=== PATIENT | male | born 1955 | race Hispanic/Latino ===

== ENCOUNTER 2018-02-02 01:27 | Inpatient (IN) | payer BC, OTHER ==
[~2018-02-02] VITALS: Ht 172.7 cm; Wt 76.7 kg
[~2018-02-02 01:27] MED LIST: GLUCOVANCE 2.51 EAC1 PO; GLYBURIDE5 MG PO; HYDROCHLOROTHIA25 MG PO; JANUMET XR 50-1 EAC1 PO; LISINOPRIL40 MG PO; Z.0.JANUVIA100 MG PO; Z.0.LISINOPRIL10 MG PO; Z.0.NORVASC10 MG PO; Z.0.TESSALON PERLE10 PO
[2018-02-02] MEDS ORDERED: ONDANSETRON HCL INJ 2 MG/ML VIAL IV STA (01:33)
[2018-02-02] MEDS ORDERED: MORPHINE SULFATE 2 MG/ML SYR IV STA (01:33)
[2018-02-02] MEDS ORDERED: SODIUM CHLORIDE 0.9% 1000ML 1,000 ML IV ONE (01:45)
[2018-02-02] MEDS ORDERED: DIATRIZOATE MEGL/DIATRIZOA SOD 30 ML BTL PO ONE (01:52)
[2018-02-02 01:56] LABS: BASOPHILS % 0.3 % (0.0-1.0); EOSINOPHILS # (AUTO) 0.4 (0.0-0.4); EOSINOPHILS % 3.2 % (0.0-6.0); HEMATOCRIT 41.2 % (38.2-49.6); LYMPHOCYTES # (AUTO) 3.2 (1.0-3.2); LYMPHOCYTES % 28.1 % (18.0-39.1); MEAN CORPUSCULAR HEMOGLOBIN 32.8 pg (28-32); MEAN CORPUSCULAR HGB CONC 36.4 g/dL (31-35); MONOCYTES # (AUTO) 0.6 (0.2-0.8); MONOCYTES % 5.2 % (4.4-11.3); NEUTROPHILS # (AUTO) 7.3 (2.1-6.9); NEUTROPHILS % 62.9 % (38.7-80.0); PLATELET COUNT 200 x10e3/uL (140-360); RED BLOOD COUNT 4.58 x10e6/uL (4.3-5.7); RED CELL DISTRIBUTION WIDTH 11.8 % (11.7-14.4)
[2018-02-02 02:15] LABS: ALANINE AMINOTRANSFERASE 12 IU/L (0-55); ALBUMIN 4.3 g/dL (3.5-5.0); ALBUMIN/GLOBULIN RATIO 1.1 (0.8-2.0); ALKALINE PHOSPHATASE 128 IU/L (40-150); AMYLASE 53 U/L (25-125); ANION GAP 16.1 mmol/L (8-16); BLOOD UREA NITROGEN 12 mg/dL (7-26); BUN/CREATININE RATIO 9 (6-25); CALCIUM 9.5 mg/dL (8.4-10.2); CARBON DIOXIDE 25 mmol/L (22-29); CHLORIDE 102 mmol/L (98-107); CREATINE KINASE 87 IU/L (30-200); CREATININE, SERUM 1.29 mg/dL (0.72-1.25); EST GLOMERULAR FILTRATION RATE 57 ML/MIN (60-); GLUCOSE 304 mg/dL (74-118); LIPASE 27 U/L (8-78); POTASSIUM 3.1 mmol/L (3.5-5.1); SODIUM 140 mmol/L (136-145)
[2018-02-02 02:34] LABS: BILIRUBIN,URINE NEGATIVE (NEGATIVE); CLARITY,URINE CLEAR (CLEAR); COLOR,URINE YELLOW (YELLOW); KETONES,URINE NEGATIVE (NEGATIVE); LEUKOCYTE ESTERASE ,URINE NEGATIVE (NEGATIVE); NITRITE,URINE NEGATIVE (NEGATIVE); PROTEIN,URINE DIPSTICK NEGATIVE (NEGATIVE); URINE UROBILINOGEN 0.2 mg/dL (0.2 - 1)
[2018-02-02] MEDS ORDERED: HYDRALAZINE HCL 20 MG/ML VIAL IV STA (02:34)
[2018-02-02 03:09] LABS: MUCUS,URINE FEW (RARE); RBC,URINE 0-5 /HPF (0-5); WBC,URINE (MAN) 0-5 /HPF (0-5)
[2018-02-02] MEDS ORDERED: IOPAMIDOL 370 MG/ML 200 ML INFUS..BTL INJ ONE (03:19)
[2018-02-02] MEDS ORDERED: SODIUM CHLORIDE 0.9% 50ML 50 ML ONE (03:19)
--- NOTE | 2018-02-02 04:01 | Diagnostic Imaging Report ---
EXAM: CT Abdomen and Pelvis WITH contrast INDICATION: Abdominal pain COMPARISON: None. TECHNIQUE: Abdomen and pelvis were scanned utilizing a multidetector helical scanner from the lung base to the pubic symphysis after administration of IV contrast. Coronal and sagittal reformations were obtained. Routine protocol was performed. Scan was performed when during portal venous phase. IV CONTRAST: 100 mL of Isovue-370 ORAL CONTRAST: Water RADIATION DOSE: Total DLP: 458.14 mGy*cm Estimated effective dose: (DLP x 0.015 x size factor) mSv COMPLICATIONS: None FINDINGS: LINES and TUBES: None. LOWER THORAX: Unremarkable HEPATOBILIARY: No focal hepatic lesions. No biliary ductal dilation. GALLBLADDER: No radio-opaque stones or sludge. No wall thickening. SPLEEN: No splenomegaly. PANCREAS: No focal masses or ductal dilatation. ADRENALS: No adrenal nodules KIDNEYS/URETERS: Kidneys enhance symmetrically. No hydronephrosis. 6.4 cm simple cyst in the inferior pole of the right kidney. Additional bilateral simple cysts are noted. No stones. GI TRACT: No abnormal distention, wall thickening, or evidence of bowel obstruction. There are diverticula within the colon with focal evidence of diverticulitis at the mid sigmoid colon best seen on series 301, image 51 and axial series 2, image 69. The appendix is dilated measuring 8.7 mm in maximum dimension, however, no evidence of periappendiceal fat stranding PELVIC ORGANS/BLADDER: Unremarkable. LYMPH NODES: No lymphadenopathy. VESSELS scrotal: There is mild atherosclerotic disease in the aorta and major arterial branches. PERITONEUM / RETROPERITONEUM: No free air or fluid. BONES: Unremarkable. SOFT TISSUES: Partially visualized bilateral scrotal hydroceles IMPRESSION: 1. Peridiverticulitis of the mid to distal sigmoid colon without complication. 2. No evidence of perforation or peritoneal fluid collection. 3. The appendix is dilated measuring 8.5 mm in diameter, however, no evidence of periappendiceal fat stranding to suggest acute appendicitis. Correlation for peritoneal signs may be equivocal due to early diverticulitis. Signed by: Dr. Israel Villela M.D. on 02/02/2018 3:57 AM
[2018-02-02] MEDS ORDERED: KCL 20MEQ/.9 SOD CHL 1,000 ML IV ONE (05:00)
[2018-02-02] MEDS ORDERED: ACETAMINOPHEN 1000 MG/100 ML IV PRN (05:00)
[2018-02-02] MEDS ORDERED: HYDROMORPHONE 1MG/1ML INJ IV PRN (05:00)
[2018-02-02] MEDS ORDERED: DEXTROSE 50% SYRINGE 50 ML IV PRN ×2 (05:00→10:15)
[2018-02-02] MEDS ORDERED: ONDANSETRON HCL INJ 2 MG/ML VIAL IV PRN (05:00)
[2018-02-02] MEDS ORDERED: HYDROMORPHONE 2MG/ML 2 MG/ML ML IV PRN (05:09)
[2018-02-02] MEDS: PIPER-TAZ 3.375 GM / NS 50ML IV SCH ×4 (05:25→17:15)
[2018-02-02] MEDS: METRONIDAZOLE 500MG/NS 100ML IV SCH ×4 (06:00→17:50)
[2018-02-02 06:44] VITALS: BP 156/77
[2018-02-02] MEDS ORDERED: INSULIN REGULAR, HUMAN 100 UNIT/1 ML 3ML VIAL SQ SCH (07:30)
[2018-02-02 08:00] VITALS: BP 178/81
[2018-02-02 10:41] VITALS: BP 156/77
[2018-02-02] MEDS ORDERED: BISACODYL 10 MG SUPP PR ONE (11:15)
[2018-02-02] MEDS: INSULIN LISPRO 100 UNIT/1 ML 3ML VIAL SQ SCH ×3 (11:30→20:36)
[2018-02-02 12:00] VITALS: BP 164/84
[2018-02-02] MEDS: LISINOPRIL 20 MG TAB PO SCH (13:50)
[2018-02-02 16:00] VITALS: BP 164/77
[2018-02-02] MEDS: INSULIN DETEMIR 100 UNIT/ML PEN SQ SCH (17:22)
[2018-02-02 19:58] VITALS: BP 165/88
[2018-02-02] MEDS: HYDRALAZINE HCL 20 MG/ML VIAL IV PRN (20:35)
[2018-02-03] VITALS: BP 136/61
[2018-02-03] MEDS: PIPER-TAZ 3.375 GM / NS 50ML IV SCH ×5 (00:52→23:54)
[2018-02-03] MEDS: METRONIDAZOLE 500MG/NS 100ML IV SCH ×4 (01:05→17:50)
[2018-02-03 04:00] VITALS: BP 143/77
[2018-02-03 04:39] LABS: BASOPHILS % 0.4 % (0.0-1.0); EOSINOPHILS # (AUTO) 0.3 (0.0-0.4); HEMATOCRIT 36.7 % (38.2-49.6); HEMOGLOBIN 13.4 g/dL (14.0-18.0); LYMPHOCYTES # (AUTO) 2.8 (1.0-3.2); LYMPHOCYTES % 29.8 % (18.0-39.1); MEAN CORPUSCULAR HEMOGLOBIN 33.1 pg (28-32); MEAN CORPUSCULAR HGB CONC 36.5 g/dL (31-35); MEAN CORPUSCULAR VOLUME 90.6 fL (81-99); MONOCYTES # (AUTO) 0.7 (0.2-0.8); MONOCYTES % 7.8 % (4.4-11.3); NEUTROPHILS # (AUTO) 5.4 (2.1-6.9); NEUTROPHILS % 58.8 % (38.7-80.0); PLATELET COUNT 177 x10e3/uL (140-360); RED BLOOD COUNT 4.05 x10e6/uL (4.3-5.7)
[2018-02-03 05:11] LABS: ALANINE AMINOTRANSFERASE 8 IU/L (0-55); ALBUMIN 3.2 g/dL (3.5-5.0); ALBUMIN/GLOBULIN RATIO 1.2 (0.8-2.0); ALKALINE PHOSPHATASE 73 IU/L (40-150); ANION GAP 12.8 mmol/L (8-16); BLOOD UREA NITROGEN 9 mg/dL (7-26); BUN/CREATININE RATIO 8 (6-25); CALCIUM 8.4 mg/dL (8.4-10.2); CARBON DIOXIDE 24 mmol/L (22-29); CHLORIDE 107 mmol/L (98-107); CREATININE, SERUM 1.15 mg/dL (0.72-1.25); EST GLOMERULAR FILTRATION RATE > 60 ML/MIN (60-); GLUCOSE 112 mg/dL (74-118); SODIUM 141 mmol/L (136-145)
[2018-02-03 05:15] LABS: POTASSIUM 2.8 mmol/L (3.5-5.1)
[2018-02-03] MEDS ORDERED: SODIUM CHLORIDE 0.9% 250ML 250 ML ONE (06:30)
[2018-02-03] MEDS ORDERED: POTASSIUM CHLORIDE 20MEQ/100ML 300 ML IV ONE (06:30)
[2018-02-03] MEDS: INSULIN LISPRO 100 UNIT/1 ML 3ML VIAL SQ SCH ×4 (07:30→20:51)
[2018-02-03 08:00] VITALS: BP 143/77
[2018-02-03 08:18] VITALS: BP 164/83
[2018-02-03] MEDS ORDERED: BISACODYL 10 MG SUPP PR NR (09:00)
[2018-02-03] MEDS: INSULIN DETEMIR 100 UNIT/ML PEN SQ SCH (09:00)
[2018-02-03] MEDS: LISINOPRIL 20 MG TAB PO SCH (09:00)
[2018-02-03] MEDS ORDERED: POTASSIUM CHLORIDE 20 MEQ TAB CR PO SCH (10:00)
[2018-02-03] MEDS: POTASSIUM CHLORIDE 20 MEQ TAB CR PO SCH ×2 (12:00→14:00)
[2018-02-03 16:52] VITALS: BP 167/80
[2018-02-03] MEDS ORDERED: HEPARIN SOD (PORCINE) 1000 UNIT/ML 30ML ONE (18:05)
[2018-02-03] MEDS ORDERED: NITROGLYCERIN/D5W 200 MCG/ML 250 ML ONE (18:06)
[2018-02-03] MEDS ORDERED: EPTIFIBATIDE 10 ML ONE (18:06)
[2018-02-03] MEDS ORDERED: ACETAMINOPHEN 325 MG TAB PO PRN (19:00)
[2018-02-03 21:00] VITALS: BP 161/79
[2018-02-04] VITALS: BP 145/82
[2018-02-04] MEDS: METRONIDAZOLE 500MG/NS 100ML IV SCH ×2 (00:34→05:48)
[2018-02-04 05:30] LABS: ANION GAP 11.2 mmol/L (8-16); BLOOD UREA NITROGEN 9 mg/dL (7-26); BUN/CREATININE RATIO 8 (6-25); CALCIUM 8.6 mg/dL (8.4-10.2); CARBON DIOXIDE 25 mmol/L (22-29); CHLORIDE 109 mmol/L (98-107); CREATININE, SERUM 1.09 mg/dL (0.72-1.25); EST GLOMERULAR FILTRATION RATE > 60 ML/MIN (60-); GLUCOSE 110 mg/dL (74-118); POTASSIUM 3.2 mmol/L (3.5-5.1); SODIUM 142 mmol/L (136-145)
[2018-02-04] MEDS: HYDRALAZINE HCL 20 MG/ML VIAL IV PRN (05:48)
[2018-02-04 05:51] VITALS: BP 170/85
[2018-02-04] MEDS ORDERED: SODIUM CHLORIDE 0.9% 250ML 250 ML ONE (06:05)
[2018-02-04] MEDS: INSULIN LISPRO 100 UNIT/1 ML 3ML VIAL SQ SCH (07:30)
[2018-02-04 07:36] VITALS: BP 170/85
[2018-02-04] MEDS: INSULIN DETEMIR 100 UNIT/ML PEN SQ SCH (07:58)
[2018-02-04 08:19] VITALS: BP 145/70
[2018-02-04] MEDS: LISINOPRIL 20 MG TAB PO SCH (08:53)
[2018-02-04] MEDS ORDERED: POTASSIUM CHLORIDE 20 MEQ TAB CR PO NR (09:15)
[2018-02-04] MEDS ORDERED: CIPROFLOXACIN500 MG PO (09:15)
[2018-02-04] MEDS ORDERED: METRONIDAZOLE500 MG PO (09:16)
--- NOTE | 2018-02-05 04:27 | Discharge Summary ---
DISCHARGE DIAGNOSES 1. Acute noncomplicated diverticulitis. 2. Type 2 diabetes on combination therapy, now controlled. 3. Hypertension, controlled. HISTORY OF PRESENT ILLNESS: Mr. Kirkland is a 62-year-old male, patient of [facility]. Past medical history is significant for type 2 diabetes mellitus and hypertension. He presented to the emergency department with a sudden onset of lower abdominal pain. He denied any nausea or vomiting. No fever or chills. His last BM was 2 days before admission. He had findings of diverticulitis and undefined edema of the appendix on CT scan. His WBCs at the time of admission were normal. He was admitted for medical therapy which was basically NPO status, IV fluids, IV antibiotics, and surgical evaluation. With the instituted treatment, he improved within the first 24 hours. His abdominal pain subsided and he was started on clear liquids and later on advanced to full liquids. He was seen by the surgical consultants. The possibility of appendicitis was ruled out and the patient was then discharged home in stable condition. He was discharged on oral ciprofloxacin and oral metronidazole. He is to follow up with his primary care physician and he is to have colonoscopy as an outpatient in 4 to 6 weeks' time. KIRSTIN VO MD Job#: [id number] VAS
--- OUTSIDE RECORDS SUMMARY | 2018-02-14 10:23 | XMS REPORT | Summary of Care ---
Author Author GARY PULLIAM N.P. Organization Unknown Address [place] [facility] Phone Unavailable Care Team Providers Care Multi Needle Machine Operator Name Role Phone GARY PULLIAM N.P. Unavailable Unavailable GABY FLORES [place], BERENICE BISHOP Unavailable Unavailable BERENICE GRIFFIN M.D. Unavailable Unavailable Unavailable Functional Status Name Dates Details Functional status health issues are not documented Status: Name Dates Details Cognitive status health issues are not documented Status: Problems Name Dates Details Renal neoplasm (239.5, D49.519) Status: Active Uncontrolled diabetes mellitus (250.02, E11.65) Status: Active Daytime hypersomnolence (780.54, G47.19) Status: Active History of herpes zoster (V12.09, Z86.19) Status: Resolved Apnea, sleep (780.57, G47.30) Status: Active Encounter for screening for malignant neoplasm of colon (V76.51, Z12.11) Status: Active History of Syncope and collapse (780.2, R55) Status: Resolved Itching (698.9, L29.9) Status: Active Essential (primary) hypertension (401.9, I10) Status: Active 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, E11.40) Status: Active 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 * Start : 23-Jan-2013 Active HydroCHLOROthiazide 25 MG Oral Tablet TAKE 1 TABLET BY MOUTH EVERY DAY. * Quantity: 90 Refills: 1 PULLIAM N.P., GARY * Start : 13-Jul-2013 Active AmLODIPine Besylate 10 MG Oral Tablet TAKE 1 TABLET BY MOUTH EVERY DAY. * Quantity: 90 Refills: 1 PULLIAM N.P., GARY * Start : 19-Nov-2013 Active GlipiZIDE XL 10 MG Oral Tablet Extended Release 24 Hour TAKE 1 TABLET BY MOUTH TWICE DAILY (BREAKFAST & LUNCH).. * Quantity: 180 Refills: 0 PULLIAM N.P., GARY * Start : 21-Mar-2014 Active Aspirin 81 MG TABS one daily * Refills: 0 Active OneTouch Verio In Vitro Strip Check sugars once- twice daily at various times including both pre and 2 hrs pos t meals. * Quantity: 1 Refills: 2 PULLIAM N.P., GARY * Start : 20-Apr-2016 Active 50 Strip Box OneTouch Delica Lancets Fine USE DIRECTED for blood sugar monitoring twice daily. * Quantity: 1 Refills: 2 PULLIAM N.P., GARY * Start : 20-Apr-2016 Active 100 Miscellaneous Box MetFORMIN HCl - 1000 MG Oral Tablet TAKE ONE TABLET BY MOUTH TWICE DAILY * Quantity: 180 Refills: 0 PULLIAM N.P., GARY Active Permethrin 5 % External Cream MASSAGE INTO SKIN FROM HEAD TO SOLES OF FEET. WASH OFF AFTER 24-48 HOURS.REPEAT IN 1 WEEK. * Quantity: 1 Refills: 5 PULLIAM N.P., GARY * Start : 16-Nov-2017 Active 60 GM Tube PredniSONE 10 MG Oral Tablet TAKE 1 TABLET DAILY. Start in the AM. * Quantity: 10 Refills: 0 PULLIAM N.P., GARY * Start : 16-Nov-2017 Active Claritin 10 MG Oral Tablet 1 TAB TWICE DAILY for 7 days then 1 TAB Once daily for 10-14 days * Quantity: 14 Refills: 0 PULLIAM N.P., GARY * Start : 16-Nov-2017 Active Benadryl Allergy 25 MG Oral Capsule TAKE 1-2 CAPSULES EVERY 6 HOURS DAILY as needed FOR ITCHING. * Refills: 0 PULLIAM N.P., GARY * Start : 16-Nov-2017 Active Januvia 100 MG Oral Tablet qd * Quantity: 90 Refills: 0 PULLIAM N.P., GARY * Start : 16-Nov-2017 Active Allergies and Adverse Reactions Name Dates Details No Known Drug Allergies (Allergy) Status: Active Past Medical History Name Dates Details History of Acute ischemic VBA thalamic stroke, right (434.91, I63.211) Status: Resolved History of Appetite loss (783.0, R63.0) Status: Resolved History of Cervicalgia (723.1, M54.2) Status: Resolved History of Current non-adherence to medical treatment (V15.81, Z91.19) Status: Resolved History of Diabetes mellitus (250.00, E11.9) Status: Resolved History of Diarrhea in adult patient (787.91, R19.7) Status: Resolved History of diplopia (V12.49, Z86.69) Status: Resolved History of essential hypertension (V12.59, Z86.79) Status: Resolved History of headache (V13.89, Z87.898) Status: Resolved History of herpes zoster (V12.09, Z86.19) Status: Resolved History of nausea (V12.79, Z87.898) Status: Resolved History of Pre-operative exam (V72.84, Z01.818) Status: Resolved History of sciatica (V12.49, Z86.69) Status: Resolved History of stroke (V12.54, Z86.73) Status: Resolved History of Syncope and collapse (780.2, R55) Status: Resolved Procedures Procedure Dates Details [QLH] CBC (INCLUDES DIFF/PLT) Date: 16-Nov-2017 [QLH] CMP W/EGFR Date: 16-Nov-2017 [H] LIPID PANEL WITH REFLEX TO DIRECT LDL Date: 16-Nov-2017 [QLH] TSH, 3RD GENERATION W/REFLEX TO FT4 Date: 16-Nov-2017 [QLH] MICROALBUMIN, RANDOM URINE (W/CREATININE) Date: 16-Nov-2017 [QLH] PSA, TOTAL Date: 16-Nov-2017 History of Back Surgery Completed Immunization Name Dates Details Immunizations not documented Family History Name Dates Details Family history of essential hypertension (V17.49, Z82.49) Status: Active Family history of diabetes mellitus (DM) (V18.0, Z83.3) Status: Active Name Dates Details Family history of diabetes mellitus (DM) (V18.0, Z83.3) Status: Active Name Dates Details Family history of cerebrovascular accident (CVA) (V17.1, Z82.3) Status: Active Family history of diabetes mellitus (DM) (V18.0, Z83.3) Status: Active Social History Name Dates Details - Status: Name Dates Details Never smoker Vital Signs Date Test Result Details :37 BP Systolic 132 mm[Hg] Status: Comments: Location: LUE; Position: Sitting BP Diastolic 78 mm[Hg] Status: Comments: Location: LUE; Position: Sitting :33 BP Systolic 149 mm[Hg] Status: Comments: Location: LUE; Position: Sitting BP Diastolic 83 mm[Hg] Status: Comments: Location: LUE; Position: Sitting Height 68 in Status: Weight 175 lb Status: Body Mass Index Calculated 26.61 kg/m2 Status: Body Surface Area Calculated 1.93 m2 Status: Temperature 98 f Status: Heart Rate 16 /min Status: Respiration Rate 18 /min Status: Results Date Description Value Details :41 [O] Hemoglobin A1c (in office) HEMOGLOBIN A1c 8.6 :06 [QLH] CMP W/EGFR Sodium Level 140 {mEq/l} Range: 135-145 Potassium Level 3.4 {mEq/l} (Below low threshold) Range: 3.5-5.1 Chloride Level 99 {mEq/l} Range: 95-109 Carbon Dioxide 32 {mEq/l} Range: 24-32 AGAP 12.4 {mEq/l} Range: 10.0-20.0 Glucose Lvl 123 mg/dl (Above high threshold) Range: 70-99 Comments: Adult reference range values reflect the clinical guidelinesof the [place] [employer]. Creatinine Lvl 1.40 mg/dl Range: 0.50-1.40 Blood Urea Nitrogen 20 mg/dl Range: 7-22 BUN/Creatinine Ratio 14 Range: 6-25 Total Protein 7.4 g/dl Range: 6.4-8.4 Albumin Lvl 3.8 g/dl Range: 3.5-5.0 Globulin 3.6 g/dl Range: 2.7-4.2 A/G Ratio 1.1 Range: 0.7-1.6 Calcium Level Total 9.7 mg/dl Range: 8.5-10.5 ALT 15 u/l Range: 0-65 AST 8 u/l Range: 0-37 Alk Phos 108 u/l Range: 39-136 Bili Total 0.9 mg/dl Range: 0.2-1.3 eGFR 54 {ML/MIN/1.7} Comments: The eGFR is calculated using the CKD-EPI formula. In most young, healthyindividuals the eGFR will be >90 mL/min/1.73m2. The eGFR declines with age. AneGFR of 60-89 may be normal in some populations, particularly the elderly, forwhom the CKD-EPI formula has not been extensively validated. Use of the eGFR isnot recommended in the following populations:Individuals with unstable creatinine concentrations, including patients and those with serious co-morbid conditions.Patients with extremes in muscle mass or diet.The data above are obtained from the National Kidney Disease Education Program(NKDEP) which additionally recommends that when the eGFR is used in patientswith extremes of body mass index for purposes of drug dosing, the eGFR shouldbe multiplied by the estimated BMI. :06 [QLH] LIPID PANEL Chol 161 mg/dl Range: <=199 Trig 119 mg/dl Range: <=149 HDL Cholesterol 34 mg/dl (Below low threshold) Range: >=61 LDL 103 mg/dl (Above high threshold) Range: <=99 CHD Risk 4.74 Range: 4.00-7.30 VLDL 24 [id number]:06 [QL] TSH, 3RD GENERATION TSH 1.270 {uIU/ml} Range: 0.360-3.740 Plan of Care Name Dates Details Planned Observations Planned Goals not documented Interventions Provided Medication Changes* AmLODIPine Besylate 10 MG Oral Tablet - Renew * GlipiZIDE XL 10 MG Oral Tablet Extended Release 24 Hour - Renew * HydroCHLOROthiazide 25 MG Oral Tablet - Renew * Januvia 100 MG Oral Tablet - Start * Lisinopril 40 MG Oral Tablet - Renew with Changes * MetFORMIN HCl - 1000 MG Oral Tablet - Renew with Changes * Permethrin 5 % External Cream - Start Labs/Procedures/Imaging* [QH] LIPID PANEL WITH REFLEX TO DIRECT LDL; To Be Done: 16 Nov 2017 * [QLH] CBC (INCLUDES DIFF/PLT); To Be Done: 16 Nov 2017 * [QLH] CMP W/EGFR; To Be Done: 16 Nov 2017 * [QLH] MICROALBUMIN, RANDOM URINE (W/CREATININE); To Be Done: 16 Nov 2017 * [QLH] PSA, TOTAL; To Be Done: 16 Nov 2017 * [QLH] TSH, 3RD GENERATION W/REFLEX TO FT4; To Be Done: 16 Nov 2017 Plan* Pt and is in agreement w/ Referrals and Consults for DM and CV Stability. Instructions Name Dates Details Instructions not documented Encounters Appointment; GARY PULLIAM NP Encounter Diagnosis: Problem not documented On: 30-Mar-2016 14:15 Appointment; GARY PULLIAM NP Encounter Diagnosis: Problem not documented On: 09-Apr-2016 8:15 Appointment; GARY PULLIAM NP Encounter Diagnosis: Problem not documented On: 16-Apr-2016 9:30 Appointment; MAIRA OWENS RD Encounter Diagnosis: Problem not documented On: 20-Apr-2016 15:00 Appointment; GARY PULLIAM NP Encounter Diagnosis: Problem not documented On: 06-May-2016 14:30 Appointment; ALMA CASTILLO M.D. Encounter Diagnosis: Problem not documented On: 14-May-2016 10:30 Appointment; JILL HENDRICKS M.D. Encounter Diagnosis: Problem not documented On: 01-Jun-2016 14:30 Appointment; DIAMOND PAULSON M.D. Encounter Diagnosis: Problem not documented On: 18-Jun-2016 10:00 Appointment; ALMA CASTILLO M.D. Encounter Diagnosis: Problem not documented On: 29-Jun-2016 14:00 Appointment; GARY PULLIAM NP Encounter Diagnosis: Problem not documented On: 02-Jul-2016 14:00 Appointment; AGUSTINA ALMENDAREZ NP Encounter Diagnosis: Problem not documented On: 19-Aug-2016 9:00 Appointment; GARY PULLIAM NP Encounter Diagnosis: Problem not documented On: 16-Nov-2017 16:30
--- OUTSIDE RECORDS SUMMARY | 2018-02-14 10:25 | XMS REPORT ---
Author [facility] Address Unknown Phone Unavailable Care Team Providers Care Editorial Manager Name Role Phone Ramiro DIAL Unavailable Unavailable Problems This patient has no known problems. Allergies, Adverse Reactions, Alerts This patient has no known allergies or adverse reactions. Medications This patient has no known medications. Results Test Description Test Time Test Comments Text Results Atomic Results Result Comments CT ABDOMEN/PELVIS W 2018-02-02 03:52:00 [place] [id number] Patient Name: ROCHELLE MCCORMICK MR #: [id number] : 1955 Age/Sex: 62/M Req #: [id number] Adm Physician: Ordered by: JESSENIA DIAL MD Report #: [id number] Location: ER Room/Bed: Procedure: [id number] CT/CT ABDOMEN/PELVIS W Exam Date: Exam Time: REPORT STATUS: Signed EXAM: CT Abdomen and Pelvis WITH contrast INDICATION: Abdominal pain COMPARISON: None. TECHNIQUE: Abdomen and pelvis were scanned utilizing a multidetector helical scanner from the lung base to the pubic symphysis after administration of IV contrast. Coronal and sagittal reformations were obtained. Routine protocol was performed. Scan was performed when during portal venous phase. IV CONTRAST: 100 mL of Isovue-370 ORAL CONTRAST: Water RADIATION DOSE: Total DLP: 458.14 mGy*cm Estimated effective dose: (DLP x 0.015 x size factor) mSv COMPLICATIONS: None FINDINGS: LINES and TUBES: None. LOWER THORAX: Unremarkable HEPATOBILIARY: No focal hepatic lesions. No biliary ductal dilation. GALLBLADDER: No radio-opaque stones or sludge. No wall thickening. SPLEEN: No splenomegaly. PANCREAS: No focal masses or ductal dilatation. ADRENALS: No adrenal nodules KIDNEYS/URETERS: Kidneys enhance symmetrically. No hydronephrosis. 6.4 cm simple cyst in the inferior pole of the right kidney. Additional bilateral simple cysts are noted. No stones. GI TRACT: No abnormal distention, wall thickening, or evidence of bowel obstruction. There are diverticula within the colon with focal evidence of diverticulitis at the mid sigmoid colon best seen on series 301, image 51 and axial series 2, image 69. The appendix is dilated measuring 8.7 mm in maximum dimension, however, no evidence of periappendiceal fat stranding PELVIC ORGANS/BLADDER: Unremarkable. LYMPH NODES: No lymphadenopathy. VESSELS scrotal: There is mild atherosclerotic disease in the aorta and major arterial branches. PERITONEUM / RETROPERITONEUM: No free air or fluid. BONES: Unremarkable. SOFT TISSUES: Partially visualized bilateral scrotal hydroceles IMPRESSION: 1. Peridiverticulitis of the mid to distal sigmoid colon without complication. 2. No evidence of perforation or peritoneal fluid collection. 3. The appendix is dilated measuring 8.5 mm in diameter, however, no evidence of periappendiceal fat stranding to suggest acute appendicitis. Correlation for peritoneal signs may be equivocal due to early diverticulitis. Signed by: Dr. Israel Villela M.D. on 02/02/2018 3:57 AM Dictated By: ISRAEL HIGUERA MD 6 Transcribed By: ALMA on 02/02/18356 COPY TO: JESSENIA DIAL MD
--- OUTSIDE RECORDS SUMMARY | 2018-02-14 10:25 | XMS REPORT | Summary of Care ---
Author Author Mayte Sharma R.N. Organization Unknown Address [place] [facility] Phone Unavailable Care Team Providers Care Chief Nuclear Medicine Technologist Name Role Phone GARY PULLIAM N.P. Unavailable Unavailable Mayte Sharma R.N. Unavailable Unavailable GABY FLORES [place], BERENICE BISHOP Unavailable Unavailable BERENICE GRIFFIN M.D. [...] (276.8, E87.6) Status: Active Other hyperlipidemia (272.4, E78.49) Status: Active Microalbuminuria (791.0, R80.9) Status: Active Prostate cancer screening (V76.44, Z12.5) Status: Active Unclassifiable eczema (692.9, L30.9) Status: Active Scabies (133.0, B86) Status: Active Medications Name Dates Details Lisinopril 40 MG Oral Tablet TAKE ONE TABLET BY MOUTH ONCE DAILY Quantity: 90 HERACLIO Lin, GARY * Start : 23-Jan-2013 Active HydroCHLOROthiazide 25 MG Oral Tablet TAKE 1 TABLET BY MOUTH EVERY DAY. * Quantity: 90 Refills: 1 PULLIAM N.P., AGRY * Start : 13-Jul-2013 Active AmLODIPine Besylate [...] qd * Quantity: 90 Refills: 0 PULLIAM N.Edwardo, GARY * Start : 16-Nov-2017 Active Allergies [...] R55) Status: Resolved Procedures Procedure Dates Details History of Back Surgery Completed Immunization Name [...] smoker Vital Signs Date Test Result Details No Known Vitals to report Results Date Description Value Details Results not documented Plan of Care Name Dates Details Planned Observations Planned Goals not documented Interventions Provided Discussion/Summary* Guideline Used: * Other: Page Dr. Dennis * Dr. Dickerson requests Dr. Dennis be paged. * pt needs admission orders. * Intended Caller Action: * Other: Page Dr. Dennis Instructions Name Dates Details Instructions not documented [...]
== END 2018-02-04 10:10 | disposition home or self-care (01) | DRG 392 ==
LOC: ER 01:27 → ERHOLD 05:16 → MED/SURG2 06:34
PROVIDERS: ADMIT Internal Medicine; ATTEND Internal Medicine
DX: K57.92 Diverticulitis of intestine, part unspecified, without perforation or abscess without bleeding (principal); E11.65 Type 2 diabetes mellitus with hyperglycemia; I10 Essential (primary) hypertension; Z79.4 Long term (current) use of insulin
CPT/HCPCS: 36415; 74177; 80048; 80053; 81001; 82150; 82550; 82553; 82948; 83690; 83735; 84132; 84484; 85025; 93005; 99284; J0360; J1327; J1644; J2270; J2405; J2543; J3480; J7030; J7050; Q9967

== ENCOUNTER 2018-04-27 20:42 | Emergency (ER) | payer SELFPAY ==
[~2018-04-27] VITALS: Ht 172.7 cm; Wt 76.7 kg
[~2018-04-27 20:42] MED LIST changes: +CIPROFLOXACIN500 MG PO; +METRONIDAZOLE500 MG PO
--- OUTSIDE RECORDS SUMMARY | 2018-04-27 20:45 | XMS REPORT | Clinical Summary ---
Author Author [facility] Organization [facility] Address Unknown Phone Unavailable Care Team Providers Care Engineering Assistant Name Role Phone Arabella Romano PCP Allergies No Known Allergies Medications End Date Status Medication Sig Dispensed Refills Start Date Active dapagliflozin (FARXIGA) Take 5 mg by 0 10 mg Tab mouth daily. Active lisinopril (PRINIVIL, Take 1 tablet 90 tablet 1 ZESTRIL) 40 mg by mouth 7 tabletIndications: HTN, daily. goal below 140/90 Active glipiZIDE (GLUCOTROL XL) Take 1 tablet 90 tablet 1 10 mg extended release by mouth 7 tabletIndications: daily. Diabetes mellitus type 2 in nonobese Active metFORMIN (GLUCOPHAGE) Take 1 tablet 180 tablet 1 1,000 mg by mouth 2 7 tabletIndications: times daily Diabetes mellitus type 2 (with meals). in nonobese Active linagliptin (TRADJENTA) 5 Take 1 tablet 90 tablet 1 01/24/201 mg tabletIndications: by mouth 7 Diabetes mellitus type 2 daily. in nonobese 09/10/2018 Active tropicamide (MYDRIACYL) Instill 1 15 mL 0 0.5 % ophthalmic Drop in each 8 solutionIndications: eye once as Diabetes mellitus type 2 needed for up in nonobese to 1 dose (for poor retina scan image). Active amLODIPine (NORVASC) 10 Take 1 tablet 30 tablet 0 mg tabletIndications: by mouth 8 Uncontrolled hypertension daily. Active hydroCHLOROthiazide Take 1 tablet 30 tablet 0 (HYDRODIURIL) 25 mg by mouth 8 tabletIndications: daily. Uncontrolled hypertension 03/14/2018 Discontinued amLODIPine (NORVASC) 10 Take 1 tablet 90 tablet 1 mg tabletIndications: by mouth 7 HTN, goal below 140/90 daily. 03/14/2018 Discontinued hydroCHLOROthiazide Take 1 tablet 90 tablet 1 (HYDRODIURIL) 25 mg by mouth 7 tabletIndications: HTN, daily. goal below 140/90 Active Problems Problem Noted Date Microalbuminuria 02/16/2017 Diabetes mellitus type 2 in nonobese 01/24/2017 Mixed hyperlipidemia 01/24/2017 HTN, goal below 140/90 01/24/2017 Encounters Care Team Description Date Type Specialty Yaquelin Rojas NP Diabetes mellitus type 2 in nonobese (Primary Dx); Uncontrolled hypertension; Dietary counseling for Above / Below Normal BMI; Exercise counseling for Above Normal BMI Only!; Overweight (BMI 25.0-29.9); Homeless; Encounter for colorectal cancer screening; Screening for HIV (human immunodeficiency virus); Screening for depression; Preventative health care; Comprehensive diabetic foot examination, type 2 DM, encounter for 03/14/2018 Office Visit Family Practice Maurice Gaffney LMSW 03/14/2018 Clinical Case Social Work Mgt Yaquelin Rojas NP Diabetes mellitus type 2 in nonobese 03/14/2018 Orders Only Family Practice after 04/26/2017 Immunizations Name Dates Previously Given Next Due Hepatitis B 03/21/2017, 02/16/2017 Pediatric/Adolescent/Adul t Herpes Zoster Vaccine In 02/16/2017 Clinic Influenza Vaccine, 02/16/2017 (Deferred: Patient Refused) Seasonal, Injectable Family History Medical History Relation Name Comments Diabetes Father Relation Name Status Comments Father Mother Social History Date Tobacco Use Types Packs/Day Years Used Never Smoker Smokeless Tobacco: Never Used Alcohol Use Drinks/Week oz/Week Comments No Sex Assigned at Date Recorded Not on file Industry Job Start Date Occupation Not on file Not on file Not on file Travel End Travel History Travel Start No recent travel history available. Last Filed Vital Signs Time Taken Vital Sign Reading 03/14/2018 11:28 AM TRAVEL AGENCY MANAGER Blood Pressure 176/104 03/14/2018 11:28 AM TRAVEL AGENCY MANAGER Pulse 75 03/14/2018 11:28 AM TRAVEL AGENCY MANAGER Temperature 36.9 C (98.5 F) 03/14/2018 11:28 AM TRAVEL AGENCY MANAGER Respiratory Rate 18 - Oxygen Saturation - - Inhaled Oxygen - Concentration 03/14/2018 11:28 AM TRAVEL AGENCY MANAGER Weight 81.6 kg (180 lb) 03/14/2018 11:28 AM TRAVEL AGENCY MANAGER Height 172.7 cm (5' 8") 03/14/2018 11:28 AM TRAVEL AGENCY MANAGER Body Mass Index 27.37 Plan of Treatment Care Team Description Date Type Specialty Iveth Dia MD [address] [address] [phone] 06/14/2018 Office Visit Ophthalmology Health Maintenance Due Date Last Done Comments IMM Influenza Seasonal 01/30/2018Jan to June (>/=19 yrs) Colorectal Cancer Scrn 02/23/2018 02/23/2017 Annual (FIT/FOBT) Age 50 to 75 DM Foot Exam (Yearly) 03/14/2019 03/14/2018, 03/14/2018, 02/16/2017, Additional history exists DM HGBA1C (Yearly) 03/16/2019 03/16/2018, 02/17/2017, 01/25/2017, Additional history exists DM Microalbumin Urine 03/16/2019 03/16/2018, 02/16/2017, 02/16/2017, Scrn (Yearly) Additional history exists DM Retinal Exam (Yearly) 03/16/2019 03/16/2018, 01/24/2017 Goals Goal Patient Associated Recent Progress Patient-Stat Author Goal Type Problems ed? Feel more energetic Lifestyle No Velma Terry, Field Reimbursement Manager Procedures Comments Procedure Name Priority Date/Time Associated Diagnosis OPHTHALMOLOGY RETINAL Routine 03/16/2018 Diabetes mellitus type 2 SCAN 11:11 PM TRAVEL AGENCY MANAGER in nonobese COMPREHENSIVE METABOLIC Routine 03/16/2018 Diabetes mellitus type 2 PANEL(DBIL NOT INCLUDED) 10:35 AM TRAVEL AGENCY MANAGER in nonobese LIPID PROFILE Routine 03/16/2018 Diabetes mellitus type 2 10:35 AM TRAVEL AGENCY MANAGER in nonobese MICROALBUM, URINE Routine 03/16/2018 Diabetes mellitus type 2 10:35 AM TRAVEL AGENCY MANAGER in nonobese HEMOGLOBIN A1C Routine 03/16/2018 Diabetes mellitus type 2 10:35 AM TRAVEL AGENCY MANAGER in nonobese DIABETIC FOOT EXAM Routine 03/14/2018 Comprehensive diabetic 11:45 AM TRAVEL AGENCY MANAGER foot examination, type 2 DM, encounter for GLUCOSE POC Routine 03/14/2018 11:36 AM TRAVEL AGENCY MANAGER POC RAPID HIV Routine 03/14/2018 Screening for HIV (human immunodeficiency virus) after 04/26/2017 Results * OPHTHALMOLOGY RETINAL SCAN (03/16/2018 11:11 PM TRAVEL AGENCY MANAGER) RETINAL NORMAL IRIS SCAN-FINAL RESULT Right Diabetic None IRIS Retinopathy Right Macular None IRIS Edema Right Other Suspected Cataract IRIS Suspected Conditions Right Image Gradeable Image IRIS Quality Left Diabetic None IRIS Retinopathy Left Macular None IRIS Edema Left Other None IRIS Suspected Conditions Left Image Gradeable Image IRIS Quality Narrative Performed At Retinal Study Result for ROCHELLE KIRKLAND GEORGE, a 62 y/o, M (: 1955, ) presented to [facility] on 03-16-2018 for a retinal imaging study of the left and right eyes. Based on the findings of the study, the following is recommended for ROCHELLE KIRKLAND Other Suspected Condition Found: Refer to [facility], next available appointment.For Follow-up at [facility]: The patient can be scheduled into any [facility] that has an open booking by calling the appointment center. Interpreting Provider's Comments:No comments provided Right Eye Findings: Negative for Diabetic Retinopathy. Other: Suspected Cataract Left Eye Findings: Normal Result.Negative for Diabetic Retinopathy. This result was electronically signed by Marcy Da Silva MD, , Taxonomy: [id number] on 03-17-2018 04:11:53 [facility] time. NOTE:Any pathology noted on this diabetic retinal evaluation should be confirmed by an appropriate ophthalmic examination. Performing Organization Address City/State/Zipcode Phone Number IRIS * MICROALBUM, URINE (03/16/2018 10:35 AM TRAVEL AGENCY MANAGER) Microalbum, 25.8 0.0 - 29.0 mg/dL [facility] Random 1 Creatinine, Ur 259.6 20 - 370 mg/dL [facility] 1 Urine 99.4 (H) 0 - 29 mg/g UCR [facility] Microalbumin Comment: 1 To minimize intra-individual variation, analysis of three random urine samples collected over the course of a week is recommended. Performing Organization Address [facility] Phone Number [facility] 1 * HEMOGLOBIN A1C (03/16/2018 10:35 AM TRAVEL AGENCY MANAGER) Hemoglobin A1c 7.5 (H) 4.3 - 6.1 % BT DIAGNOSTIC IMMUNOLOGY Est Average 168.6 mg/dL BT DIAGNOSTIC Gluc IMMUNOLOGY Specimen Blood Performing Organization Address [facility] Phone Number MIS[facility] BT DIAGNOSTIC IMMUNOLOGY * COMPREHENSIVE METABOLIC PANEL(DBIL NOT INCLUDED) (03/16/2018 10:35 AM TRAVEL AGENCY MANAGER) Albumin 4.5 4.2 - 5.5 g/dL BT [facility] 1 Calcium 9.5 8.6 - 10.3 mg/dL BT [facility] 1 CO2 33 (H) 21 - 31 mmol/L BT [facility] 1 Chloride 102 98 - 107 mmol/L BT [facility] 1 Creatinine 1.10 0.7 - 1.3 mg/dL BT [facility] 1 Glucose 147 (H) 70 - 110 mg/dL BT [facility] 1 Alk Phos 74 34 - 104 U/L BT [facility] 1 Potassium 3.8 3.5 - 5.1 mmol/L BT [facility] 1 Sodium 143 136 - 145 mmol/L BT [facility] 1 ALT 15 7 - 52 U/L BT [facility] 1 AST 13 13 - 39 U/L BT [facility] 1 Urea Nitrogen 15 7 - 25 mg/dL BT [facility] 1 T Bilirubin 0.7 0.2 - 1.2 mg/dL BT [facility] 1 T Protein 7.3 6.0 - 8.3 g/dL BT [facility] 1 GFR, Estimated >60 mL/min/1.73 m2 BT [facility] 1 GFR, Estim, >60 mL/min/1.73 m2 BT [facility] Afr-Am 1 Anion Gap 8 BT [facility] 1 Specimen Blood Performing Organization Address [facility] Phone Number [facility] 1 * LIPID PROFILE (03/16/2018 10:35 AM TRAVEL AGENCY MANAGER) Cholesterol 171 mg/dL [facility] Comment: 1 REFERENCE RANGE: Desirable: <200 mg/dL Borderline: 200-240 mg/dL High Risk: >240 mg/dL Triglyceride 156 (H) <150 mg/dL BT [facility] Comment: 1 REFERENCE RANGE: Normal: <150 mg/dL Borderline High: 150-199 mg/dL High: 200-499 mg/dL Very High: >ob=537 mg/dL HDL 26 mg/dL BT [facility] Comment: 1 Increased CHD risk: <40 mg/dL Decreased CHD risk: >60 mg/dL LDL 114 mg/dL BT [facility] Comment: 1 REFERENCE RANGE: Optimal: <100 mg/dL Near Optimal: 100-129 mg/dL Borderline High: 130-159 mg/dL High: 160-189 mg/dL Very High: >sq=767 mg/dL Specimen Blood Performing Organization Address City/State/Zipcode Phone Number [facility] [facility] 1 * DIABETIC FOOT EXAM (03/14/2018 11:45 AM TRAVEL AGENCY MANAGER) Narrative Performed At Yaquelin Rojas NP 03/14/20181:35 PM Diabetic Foot Exam was performed at 03/14/2018 11:52 AM.Right foot sensation is normal, right foot pulses are normal, right foot appearance is normal.Left foot sensation is normal,left foot pulses are normal, left foot appearance is normal.Bilateral great toes with thickened yellowish discoloration * GLUCOSE POC (03/14/2018 11:36 AM TRAVEL AGENCY MANAGER) Glucose POC 192 (H) 74 - 106 mg/dL [facility] Performing Organization Address [facility] Phone Number [facility] * POC RAPID HIV (03/14/2018) Rapid HIV Negative Result Rapid HIV Pass Control after 04/26/2017 Insurance Type Payer Benefit Subscriber ID Effective Phone Address Plan / Dates Group HOMELESS KRYSTINA HOMELESS xxxxxxx 2018- [phone] [id number] [facility] [address] [place] [address]
--- OUTSIDE RECORDS SUMMARY | 2018-04-27 20:45 | XMS REPORT | Summary of Care ---
Author Author Millie Justice Organization Unknown Address [facility] Phone Unavailable Care Team Providers Care Plumbing Technician Name Role Phone HERACLIO Lin, GARY Unavailable Unavailable Millie Justice Unavailable Unavailable GABY FLORES [place], BERENICE BISHOP Unavailable Unavailable GABY Corral, BERENICE Ferguson Unavailable Unavailable Unavailable Functional Status Name Dates Details Functional status health issues are not documented Status: Name Dates Details Cognitive status health issues are not documented Status: Problems Name Dates Details Renal neoplasm (239.5, D49.519) Status: Active History of herpes zoster (V12.09, Z86.19) Status: Resolved Encounter for screening for malignant neoplasm of colon (V76.51, Z12.11) Status: Active Prostate cancer screening (V76.44, Z12.5) Status: Active History of diverticulitis of colon (V12.79, Z87.19) Status: Active Current non-adherence to medical treatment (V15.81, Z91.19) Status: Active 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, E11.40) Status: Active Essential (primary) hypertension (401.9, I10) Status: Active 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, 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: Active Daytime hypersomnolence (780.54, G47.19) Status: Active Other hyperlipidemia (272.4, E78.49) Status: Active Microalbuminuria (791.0, R80.9) Status: Active Uncontrolled diabetes mellitus (250.02, E11.65) Status: Active History of Acute ischemic VBA thalamic stroke, right (434.91, I63.211) Status: Resolved Hypokalemia (276.8, E87.6) Status: Active Apnea, sleep (780.57, G47.30) Status: Active History of Syncope and collapse (780.2, R55) Status: Resolved Unclassifiable eczema (692.9, L30.9) Status: Active Medications Name Dates Details Lisinopril 40 MG Oral Tablet TAKE ONE TABLET BY MOUTH ONCE DAILY Quantity: 90 PULLIAM N.P., GARY * Start : 23-Jan-2013 Active HydroCHLOROthiazide [...] Start : 20-Apr-2016 Active 100 Miscellaneous Box Janumet XR 50-1000 MG Oral Tablet Extended Release 24 Hour 2 po QAM * Quantity: 60 Refills: 2 HERACLIO N.P., GARY * Start : 17-Feb-2018 Active Pioglitazone HCl - 45 MG Oral Tablet TAKE 1 TABLET ONCE DAILY. * Quantity: 30 Refills: 2 HERACLIO N.P., GARY * Start : 17-Feb-2018 Active Allergies and Adverse Reactions Name Dates Details No Known Drug Allergies (Allergy) Status: Active Past Medical History Name Dates Details History of Acute ischemic VBA thalamic stroke, right (434.91, I63.211) Status: Resolved History of Appetite loss (783.0, R63.0) Status: Resolved History of Cervicalgia (723.1, M54.2) Status: Resolved History of Diabetes mellitus (250.00, E11.9) Status: Resolved History of Diarrhea in adult patient (787.91, R19.7) Status: Resolved History of diplopia (V12.49, Z86.69) Status: Resolved History of essential hypertension (V12.59, Z86.79) Status: Resolved History of headache (V13.89, Z87.898) Status: Resolved History of herpes zoster (V12.09, Z86.19) Status: Resolved History of itching (V13.3, Z87.898) Status: Resolved History of nausea (V12.79, Z87.898) Status: Resolved History of Pre-operative exam (V72.84, Z01.818) Status: Resolved History of scabies (V12.09, Z86.19) Status: Resolved History of sciatica (V12.49, Z86.69) Status: Resolved History of stroke (V12.54, Z86.73) Status: Resolved History of Syncope and collapse (780.2, R55) Status: Resolved Procedures Procedure Dates Details History of Back Surgery Completed Immunization Name Dates Details Zoster (Zostavax) on: May-2014 Family History Name Dates Details Family history [...] smoker Vital Signs Date Test Result Details :05 BP Systolic 129 mm[Hg] Status: Comments: Location: LUE; Position: Sitting BP Diastolic 69 mm[Hg] Status: Comments: Location: LUE; Position: Sitting Height 68 in Status: Weight 174.0625 lb Status: Body Mass Index Calculated 26.47 kg/m2 Status: Body Surface Area Calculated 1.93 m2 Status: Temperature 97.2 f Status: Heart Rate 78 /min Status: Respiration Rate 18 /min Status: Comments: Quality: Normal Physical Findings 0 Status: Comments: Alcohol Screen - How many times in the past yr have you had 5 (for M) or 4 (for F) or 4 (for all > 65yrs) or more drinks in a day? Results Date Description Value Details :14 [O] Hemoglobin A1c (in office) HEMOGLOBIN A1c 8.0 Plan of Care Name Dates Details Planned Observations Planned Goals not documented Instructions Name Dates Details Instructions not documented [...] Diagnosis: Problem not documented On: 16-Nov-2017 16:30 Appointment; GARY PULLIAM NP Encounter Diagnosis: Problem not documented On: 17-Feb-2018 8:30
[2018-04-27] MEDS ORDERED: ONDANSETRON HCL INJ 2 MG/ML VIAL IV NR (21:16)
[2018-04-27] MEDS ORDERED: SODIUM CHLORIDE 0.9% 1000ML 1,000 ML IV STA (21:16)
[2018-04-27] MEDS ORDERED: MORPHINE SULFATE INJ 4 MG/ML INJ IV NR (21:16)
[2018-04-27] MEDS ORDERED: ONDANSETRON HCL INJ 2 MG/ML VIAL ONE (21:22)
[2018-04-27] MEDS ORDERED: MORPHINE SULFATE INJ 4 MG/ML INJ ONE (21:22)
[2018-04-27] MEDS ORDERED: SODIUM CHLORIDE 0.9% 1000ML 1,000 ML ONE (21:22)
[2018-04-27 22:19] LABS: BASOPHILS # (AUTO) 0.1 (0.0-0.1); BASOPHILS % 0.6 % (0.0-1.0); EOSINOPHILS # (AUTO) 0.3 (0.0-0.4); EOSINOPHILS % 2.9 % (0.0-6.0); HEMATOCRIT 44.4 % (38.2-49.6); HEMOGLOBIN 15.8 g/dL (14.0-18.0); LYMPHOCYTES # (AUTO) 3.6 (1.0-3.2); LYMPHOCYTES % 32.6 % (18.0-39.1); MEAN CORPUSCULAR HEMOGLOBIN 32.6 pg (28-32); MEAN CORPUSCULAR HGB CONC 35.6 g/dL (31-35); MEAN CORPUSCULAR VOLUME 91.5 fL (81-99); MONOCYTES # (AUTO) 0.7 (0.2-0.8); NEUTROPHILS # (AUTO) 6.5 (2.1-6.9); NEUTROPHILS % 57.6 % (38.7-80.0); PLATELET COUNT 203 x10e3/uL (140-360); RED BLOOD COUNT 4.85 x10e6/uL (4.3-5.7); RED CELL DISTRIBUTION WIDTH 12.6 % (11.7-14.4)
--- NOTE | 2018-04-27 22:24 | Diagnostic Imaging Report ---
EXAM: CHEST SINGLE (PORTABLE), AP 1 view INDICATION: Abdominal pain, vomiting COMPARISON: None FINDINGS: LINES/TUBES: None LUNGS: No consolidations or edema. PLEURA: No effusions or pneumothorax. HEART AND MEDIASTINUM: Normal size and contour. BONES AND SOFT TISSUES: No acute findings. IMPRESSION: No acute thoracic abnormality. Signed by: Dr. Clemencia Alamo M.D. on 04/27/2018 10:21 PM
[2018-04-27 22:30] LABS: INR 0.88; PARTIAL THROMBOPLASTIN TIME 27.6 seconds (23.8-35.5); PROTHROMBIN TIME 12.8 seconds (11.9-14.5)
[2018-04-27 22:39] LABS: ALBUMIN 4.7 g/dL (3.5-5.0); ALBUMIN/GLOBULIN RATIO 1.3 (0.8-2.0); ANION GAP 19.3 mmol/L (8-16); CREATININE, SERUM 1.48 mg/dL (0.72-1.25); POTASSIUM 3.3 mmol/L (3.5-5.1)
[2018-04-27 22:42] LABS: CLARITY,URINE SL CLOUDY (CLEAR); COLOR,URINE YELLOW (YELLOW)
[2018-04-27 22:43] LABS: BILIRUBIN,URINE NEGATIVE (NEGATIVE); KETONES,URINE TRACE (NEGATIVE); LEUKOCYTE ESTERASE ,URINE NEGATIVE (NEGATIVE); NITRITE,URINE NEGATIVE (NEGATIVE); PROTEIN,URINE DIPSTICK NEGATIVE (NEGATIVE); URINE UROBILINOGEN 0.2 mg/dL (0.2 - 1); WBC,URINE (MAN) 0-5 /HPF (0-5)
[2018-04-27 22:44] LABS: BACTERIA,URINE MODERATE /HPF; EPITHELIAL CELLS,URINE RARE /LPF
[2018-04-27 22:45] LABS: CALCIUM 10.2 mg/dL (8.4-10.2); CREATINE KINASE MB 1.9 ng/mL (0-5.0)
[2018-04-27] MEDS ORDERED: HYDRALAZINE HCL 20 MG/ML VIAL IV STA (23:19)
[2018-04-27] MEDS ORDERED: SODIUM CHLORIDE 0.9% 50ML 50 ML ONE (23:58)
[2018-04-27] MEDS ORDERED: IOPAMIDOL 370 MG/ML 200 ML INFUS..BTL INJ ONE (23:58)
--- NOTE | 2018-04-28 00:06 | Diagnostic Imaging Report ---
EXAM: CT ABDOMEN AND PELVIS with IV CONTRAST DATE: 04/27/2018 9:16 PM Time stamp on Exam: 2347 hours INDICATION: Upper abdominal pain after eating COMPARISON: CT of the abdomen and pelvis February 02, 2018 and June 26, 2011 CT abdomen and pelvis without IV contrast TECHNIQUE: The abdomen and pelvis were scanned using a multidetector helical scanner. Coronal and sagittal reformations were obtained. Dose modulation, iterative reconstruction, and/or weight based adjustment of the mA/kV was utilized to reduce the radiation dose to as low as reasonably achievable. Routine protocol performed. IV Contrast: 100 cc Isovue 370 Oral Contrast: Water FINDINGS: LOWER THORAX: Mild bibasilar atelectasis. LIVER: No masses BILIARY: The gallbladder is mildly distended. Minimal intrahepatic biliary dilation. The common bile duct is mildly dilated at 9 mm. These are stable finding since prior CT in January. SPLEEN: No masses PANCREAS: No masses ADRENALS: No nodules KIDNEYS: Symmetric perfusion. No enhancing masses. No hydronephrosis. Stable simple cyst arising from the inferior pole of the right kidney measuring 6.7 cm. Stable cyst arising from the interpolar region of the left kidney measuring 2.7 cm. GI TRACT: No distention, wall thickening or evidence of obstruction. Sigmoid colon diverticulosis. Stable mild prominence of the appendix at 8 mm without surrounding inflammation. VESSELS: Unremarkable PERITONEUM/RETROPERITONEUM: No free air or fluid LYMPH NODES: No lymphadenopathy REPRODUCTIVE ORGANS: Unremarkable BLADDER: Unremarkable SOFT TISSUES: Unremarkable BONES: No suspicious bone lesions. IMPRESSION: No acute findings in the CT of the abdomen or pelvis. Signed by: Dr. Clemencia Alamo M.D. on 04/28/2018 12:02 AM
[2018-04-28] MEDS ORDERED: KETOROLAC TROMETHAMINE 30 MG/ML VIAL IV STA (00:22)
[2018-04-28 01:56] VITALS: BP 153/86
[2018-04-29] MEDS ORDERED: PIOGLITAZONE HC45 MG PO (05:42)
[2018-04-29] MEDS ORDERED: GLIPIZIDE ER10 MG PO (05:42)
[2018-04-29] MEDS ORDERED: ESIDRIX25 MG PO (05:42)
[2018-04-29] MEDS ORDERED: AMLODIPINE BESY10 MG PO (05:42)
[2018-04-29] MEDS ORDERED: ASPIR 8181 MG PO (05:45)
== END 2018-04-28 02:05 | disposition home or self-care (01) ==
LOC: ER 20:42
DX: R10.11 Right upper quadrant pain (principal); R10.12 Left upper quadrant pain; K80.20 Calculus of gallbladder without cholecystitis without obstruction; I10 Essential (primary) hypertension; E11.9 Type 2 diabetes mellitus without complications; E78.5 Hyperlipidemia, unspecified; Z86.73 Personal history of transient ischemic attack (TIA), and cerebral infarction without residual deficits
CPT/HCPCS: 36415; 71045; 74177; 80053; 81001; 82150; 82550; 82553; 83690; 84484; 85025; 85610; 85730; 99284; J0360; J1885; J2270; J2405; J7030; Q9967

== ENCOUNTER 2018-04-28 16:59 | Inpatient (IN) | payer SELFPAY ==
[~2018-04-28] VITALS: Ht 167.6 cm; Wt 82.7 kg
--- OUTSIDE RECORDS SUMMARY | 2018-04-28 17:02 | XMS REPORT | Clinical Summary ---
Author Author [facility] Organization [facility] Address Unknown Phone Unavailable Care Team Providers Care Field Contact Person Name Role Phone Arabella Romano PCP Allergies [...] nonobese 03/14/2018 Orders Only Family Practice after 2017 Immunizations Name Dates Previously Given Next Due [...] Taken Vital Sign Reading 03/14/2018 11:28 AM CNC CUTTING OPERATOR Blood Pressure 176/104 03/14/2018 11:28 AM CNC CUTTING OPERATOR Pulse 75 03/14/2018 11:28 AM CNC CUTTING OPERATOR Temperature 36.9 C (98.5 F) 03/14/2018 11:28 AM CNC CUTTING OPERATOR Respiratory Rate 18 - Oxygen Saturation - - Inhaled Oxygen - Concentration 03/14/2018 11:28 AM CNC CUTTING OPERATOR Weight 81.6 kg (180 lb) 03/14/2018 11:28 AM CNC CUTTING OPERATOR Height 172.7 cm (5' 8") 03/14/2018 11:28 AM CNC CUTTING OPERATOR Body Mass Index 27.37 Plan of Treatment Care Team Description Date Type Specialty Iveth Dia MD [address] [address] [phone] 06/14/2018 Office Visit Ophthalmology Health Maintenance Due [...] Feel more energetic Lifestyle No Velma Terry, Online Project Manager Procedures Comments Procedure Name Priority Date/Time Associated Diagnosis OPHTHALMOLOGY RETINAL Routine 03/16/2018 Diabetes mellitus type 2 SCAN 11:11 PM CNC CUTTING OPERATOR in nonobese COMPREHENSIVE METABOLIC Routine 03/16/2018 Diabetes mellitus type 2 PANEL(DBIL NOT INCLUDED) 10:35 AM CNC CUTTING OPERATOR in nonobese LIPID PROFILE Routine 03/16/2018 Diabetes mellitus type 2 10:35 AM CNC CUTTING OPERATOR in nonobese MICROALBUM, URINE Routine 03/16/2018 Diabetes mellitus type 2 10:35 AM CNC CUTTING OPERATOR in nonobese HEMOGLOBIN A1C Routine 03/16/2018 Diabetes mellitus type 2 10:35 AM CNC CUTTING OPERATOR in nonobese DIABETIC FOOT EXAM Routine 03/14/2018 Comprehensive diabetic 11:45 AM CNC CUTTING OPERATOR foot examination, type 2 DM, encounter for GLUCOSE POC Routine 03/14/2018 11:36 AM CNC CUTTING OPERATOR POC RAPID HIV Routine 03/14/2018 Screening for HIV (human immunodeficiency virus) after 2017 Results * OPHTHALMOLOGY RETINAL SCAN (03/16/2018 11:11 PM CNC CUTTING OPERATOR) RETINAL NORMAL IRIS SCAN-FINAL RESULT Right Diabetic [...] y/o, M (: 1955, ) presented to [facility] on 03-16-2018 for a retinal imaging study of the left and right eyes. Based on the findings of the study, the following is recommended for ROCHELLE KIRKLAND Other Suspected Condition Found: Refer to [facility], next available appointment.For Follow-up at [facility]: The patient can be scheduled into any [facility] that has an open booking by calling the appointment center. Interpreting Provider's Comments:No comments provided Right Eye Findings: Negative for Diabetic Retinopathy. Other: Suspected Cataract Left Eye Findings: Normal Result.Negative for Diabetic Retinopathy. This result was electronically signed by Marcy Da Silva MD, , Taxonomy: [id number] on 03-17-2018 04:11:53 [facility] time. NOTE:Any pathology noted on this diabetic retinal evaluation should be confirmed by an appropriate ophthalmic examination. Performing Organization Address City/State/Zipcode Phone Number IRIS * MICROALBUM, URINE (03/16/2018 10:35 AM CNC CUTTING OPERATOR) Microalbum, 25.8 0.0 - 29.0 mg/dL BT MAIN-STATION Random 1 Creatinine, Ur 259.6 20 - 370 mg/dL BT MAIN-STATION 1 Urine 99.4 (H) 0 - 29 mg/g UCR BT MAIN-STATION Microalbumin Comment: 1 To minimize intra-individual variation, analysis of three random urine samples collected over the course of a week is recommended. Performing Organization Address City/[facility] Phone Number [facility] BT MAIN-STATION 1 * HEMOGLOBIN A1C (03/16/2018 10:35 AM CNC CUTTING OPERATOR) Hemoglobin A1c 7.5 (H) 4.3 - 6.1 % BT DIAGNOSTIC IMMUNOLOGY Est Average 168.6 mg/dL BT DIAGNOSTIC Gluc IMMUNOLOGY Specimen Blood Performing Organization Address [facility] Phone Number MISYS BT DIAGNOSTIC IMMUNOLOGY * COMPREHENSIVE METABOLIC PANEL(DBIL NOT INCLUDED) (03/16/2018 10:35 AM CNC CUTTING OPERATOR) Albumin 4.5 4.2 - 5.5 g/dL BT [...] MAIN-STATION 1 Specimen Blood Performing Organization Address [facility] Phone Number [place] BT MAIN-STATION 1 * LIPID PROFILE (03/16/2018 10:35 AM CNC CUTTING OPERATOR) Cholesterol 171 mg/dL BT MAIN-STATION Comment: 1 REFERENCE RANGE: Desirable: <200 mg/dL Borderline: 200-240 mg/dL High Risk: >240 mg/dL Triglyceride 156 (H) <150 mg/dL BT MAIN-STATION Comment: 1 REFERENCE RANGE: Normal: <150 mg/dL Borderline High: 150-199 mg/dL High: 200-499 mg/dL Very High: >wk=892 mg/dL HDL 26 mg/dL BT MAIN-STATION Comment: 1 Increased CHD risk: <40 mg/dL Decreased CHD risk: >60 mg/dL LDL 114 mg/dL BT MAIN-STATION Comment: 1 REFERENCE RANGE: Optimal: <100 mg/dL Near Optimal: 100-129 mg/dL Borderline High: 130-159 mg/dL High: 160-189 mg/dL Very High: >az=193 mg/dL Specimen Blood Performing Organization Address City/State/Zipcode Phone Number [place] BT MAIN-STATION 1 * DIABETIC FOOT EXAM (03/14/2018 11:45 AM CNC CUTTING OPERATOR) Narrative Performed At Yaquelin Rojas NP 03/14/20181:35 PM Diabetic Foot Exam was performed at 03/14/2018 11:52 AM.Right foot sensation is normal, right foot pulses are normal, right foot appearance is normal.Left foot sensation is normal,left foot pulses are normal, left foot appearance is normal.Bilateral great toes with thickened yellowish discoloration * GLUCOSE POC (03/14/2018 11:36 AM CNC CUTTING OPERATOR) Glucose POC 192 (H) 74 - 106 mg/dL [facility] Performing Organization Address City/State/[facility] Phone Number [place] [facility] * POC RAPID HIV (03/14/2018) Rapid HIV Negative Result Rapid HIV Pass Control after 2017 Insurance Type Payer Benefit Subscriber ID Effective Phone Address Plan / Dates Group HOMELESS KRYSTINA HOMELESS xxxxxxx 2018- [phone] [id number] [facility] [address] [place] [address]
[2018-04-28] MEDS ORDERED: ACETAMINOPHEN 1000 MG/100 ML IV STA (17:19)
[2018-04-28] MEDS ORDERED: DIATRIZOATE MEGL/DIATRIZOA SOD 30 ML BTL PO ONE (17:28)
[2018-04-28] MEDS ORDERED: ONDANSETRON HCL INJ 2 MG/ML VIAL IV STA (17:29)
[2018-04-28] MEDS ORDERED: HYDROMORPHONE 2MG/ML 2 MG/ML ML IV ONE (17:30)
[2018-04-28 18:06] LABS: BASOPHILS % 0.4 % (0.0-1.0); EOSINOPHILS % 0.1 % (0.0-6.0); HEMATOCRIT 45.1 % (38.2-49.6); HEMOGLOBIN 15.9 g/dL (14.0-18.0); LYMPHOCYTES # (AUTO) 0.9 (1.0-3.2); LYMPHOCYTES % 8.1 % (18.0-39.1); MEAN CORPUSCULAR HEMOGLOBIN 32.7 pg (28-32); MEAN CORPUSCULAR HGB CONC 35.3 g/dL (31-35); MEAN CORPUSCULAR VOLUME 92.8 fL (81-99); MONOCYTES # (AUTO) 0.1 (0.2-0.8); MONOCYTES % 0.9 % (4.4-11.3); NEUTROPHILS # (AUTO) 9.9 (2.1-6.9); NEUTROPHILS % 89.7 % (38.7-80.0); PLATELET COUNT 182 x10e3/uL (140-360); RED BLOOD COUNT 4.86 x10e6/uL (4.3-5.7); RED CELL DISTRIBUTION WIDTH 13.1 % (11.7-14.4)
--- NOTE | 2018-04-28 18:10 | Diagnostic Imaging Report ---
EXAMINATION: CHEST SINGLE (PORTABLE) COMPARISON: Chest x-ray 04/27/2018 INDICATION: Abdominal pain DISCUSSION: Frontal view of the chest obtained at 1732 hours. HEART AND MEDIASTINUM: The cardiomediastinal silhouette is unremarkable. LINES: None. LUNGS: Low lung volumes with subsegmental atelectasis of the right middle lobe and lower lobe. No new findings in the left lung. No pulmonary edema. PLEURA: No pleural effusion or pneumothorax. BONES AND SOFT TISSUES: Stable degenerative changes. No focal osseous lesions. The soft tissues are normal. No free air beneath the diaphragm. IMPRESSION: Low lung volumes with subsegmental atelectasis. Signed by: Dr. Talita Lozada MD on 04/28/2018 6:06 PM
[2018-04-28 18:24] LABS: ALBUMIN/GLOBULIN RATIO 1.1 (0.8-2.0); ANION GAP 16.1 mmol/L (8-16); CALCIUM 9.2 mg/dL (8.4-10.2); CREATININE, SERUM 1.28 mg/dL (0.72-1.25); POTASSIUM 3.1 mmol/L (3.5-5.1)
--- NOTE | 2018-04-28 19:20 | NUR ---
REPORT GIVEN TO KWADWO VILLEGASSERVICE LINE COORDINATORSUPERVISOR CRACK OFF NURSE.
--- NOTE | 2018-04-28 19:20 | NUR ---
awake alert skin w/d resp nonlab, nad noted. denies pain at present. family at bedside
[2018-04-28] MEDS ORDERED: DEXTROSE 50% SYRINGE 50 ML IV PRN (19:45)
[2018-04-28] MEDS ORDERED: ONDANSETRON HCL INJ 2 MG/ML VIAL IV PRN (19:45)
[2018-04-28] MEDS ORDERED: PIPER-TAZ 3.375 GM 50 ML IV ONE (19:45)
[2018-04-28] MEDS ORDERED: HYDROMORPHONE 1MG/1ML INJ IV PRN (19:45)
--- NOTE | 2018-04-28 20:20 | Diagnostic Imaging Report ---
HISTORY: Acute abdominal pain, elevated LFTs TECHNIQUE: Selected images from limited abdominal ultrasound provided for INTERPRETATION: COMPARISON: CT abdomen 04/27/2018. FINDINGS: Pancreas: Visualized portions are normal. No ductal dilatation. Liver: Measures 13.9 cm in sagittal plane. The echotexture is normal. No mass in the visualized portions. Portal Vein: Measures 0.9 cm. Proper directional flow on spectral Doppler interrogation. Biliary Tree: Normal Gallbladder: Present and is distended. Small amount of sludge. No gallstones. No gallbladder wall thickening or pericholecystic fluid. Sonographic Rock sign is negative. CBD: Not visualized due to bowel gas. Right Kidney: 12.2 cm in greatest length. The echotexture is normal. There is a unilocular cyst in the lower pole measuring 6.3 x 6.4 x 6.3 cm. There is no collecting system dilatation or evidence of obstruction. No renal calculi evident. No adjacent free fluid or fluid collections. Visualized IVC and aorta are normal. There is no free fluid. IMPRESSION: 1. Distended gallbladder containing sludge. No sonographic evidence of acute cholecystitis. Nonvisualization of the common bile duct due to bowel gas. 2. Normal hepatic echotexture. 3. Cyst in the right kidney as described above. Signed by: Dr. Talita Lozada MD on 04/28/2018 8:17 PM
[2018-04-28 21:04] LABS: BAND NEUTROPHILS % (MANUAL) 1 %; LYMPHOCYTES % (MANUAL) 8 % (19-48); MONOCYTES % (MANUAL) 1 % (3.4-9.0); NEUTROPHILS % (MANUAL) 90 % (40-74)
[2018-04-28 21:05] LABS: PLATELET ESTIMATE ADEQUATE; PLATELET MORPHOLOGY COMMENT NORMAL; RBC MORPHOLOGY COMMENT NORMAL
[2018-04-28] MEDS: SODIUM CHLORIDE 0.9% 1000ML 1,000 ML IV SCH (21:06)
[2018-04-28] MEDS: INSULIN REGULAR, HUMAN 100 UNIT/1 ML 3ML VIAL SQ SCH (21:39)
--- OUTSIDE RECORDS SUMMARY | 2018-04-28 22:30 | XMS REPORT | Clinical Summary ---
Author Author [facility] Organization [facility] Address Unknown Phone Unavailable Care Team Providers Care Ladder Operator Name Role Phone Arabella Romano PCP Allergies [...] Taken Vital Sign Reading 03/14/2018 11:28 AM MOLDED GRID AND PARTS INSPECTOR Blood Pressure 176/104 03/14/2018 11:28 AM MOLDED GRID AND PARTS INSPECTOR Pulse 75 03/14/2018 11:28 AM MOLDED GRID AND PARTS INSPECTOR Temperature 36.9 C (98.5 F) 03/14/2018 11:28 AM MOLDED GRID AND PARTS INSPECTOR Respiratory Rate 18 - Oxygen Saturation - - Inhaled Oxygen - Concentration 03/14/2018 11:28 AM MOLDED GRID AND PARTS INSPECTOR Weight 81.6 kg (180 lb) 03/14/2018 11:28 AM MOLDED GRID AND PARTS INSPECTOR Height 172.7 cm (5' 8") 03/14/2018 11:28 AM MOLDED GRID AND PARTS INSPECTOR Body Mass Index 27.37 Plan of Treatment Care Team Description Date Type Specialty Iveth Dia MD [address] [address] [phone] 06/14/2018 Office Visit Ophthalmology Health Maintenance Due [...] Feel more energetic Lifestyle No Velma Terry, Supervisor Asbestos Removal Procedures Comments Procedure Name Priority Date/Time Associated Diagnosis OPHTHALMOLOGY RETINAL Routine 03/16/2018 Diabetes mellitus type 2 SCAN 11:11 PM MOLDED GRID AND PARTS INSPECTOR in nonobese COMPREHENSIVE METABOLIC Routine 03/16/2018 Diabetes mellitus type 2 PANEL(DBIL NOT INCLUDED) 10:35 AM MOLDED GRID AND PARTS INSPECTOR in nonobese LIPID PROFILE Routine 03/16/2018 Diabetes mellitus type 2 10:35 AM MOLDED GRID AND PARTS INSPECTOR in nonobese MICROALBUM, URINE Routine 03/16/2018 Diabetes mellitus type 2 10:35 AM MOLDED GRID AND PARTS INSPECTOR in nonobese HEMOGLOBIN A1C Routine 03/16/2018 Diabetes mellitus type 2 10:35 AM MOLDED GRID AND PARTS INSPECTOR in nonobese DIABETIC FOOT EXAM Routine 03/14/2018 Comprehensive diabetic 11:45 AM MOLDED GRID AND PARTS INSPECTOR foot examination, type 2 DM, encounter for GLUCOSE POC Routine 03/14/2018 11:36 AM MOLDED GRID AND PARTS INSPECTOR POC RAPID HIV Routine 03/14/2018 Screening for HIV (human immunodeficiency virus) after 2017 Results * OPHTHALMOLOGY RETINAL SCAN (03/16/2018 11:11 PM MOLDED GRID AND PARTS INSPECTOR) RETINAL NORMAL IRIS SCAN-FINAL RESULT Right Diabetic [...] y/o, M (: 1955, ) presented to [facility] on 03-16-2018 for a retinal imaging study of the left and right eyes. Based on the findings of the study, the following is recommended for ROCHELLE KIRKLAND Other Suspected Condition Found: Refer to [facility], next available appointment.For Follow-up at [facility]: The patient can be scheduled into any [facility] that has an open booking by calling the appointment center. Interpreting Provider's Comments:No comments provided Right Eye Findings: Negative for Diabetic Retinopathy. Other: Suspected Cataract Left Eye Findings: Normal Result.Negative for Diabetic Retinopathy. This result was electronically signed by Marcy Da Silva MD, , Taxonomy: [id number] on 03-17-2018 04:11:53 [facility] time. NOTE:Any pathology noted on this diabetic retinal evaluation should be confirmed by an appropriate ophthalmic examination. Performing Organization Address City/State/Zipcode Phone Number IRIS * MICROALBUM, URINE (03/16/2018 10:35 AM MOLDED GRID AND PARTS INSPECTOR) Microalbum, 25.8 0.0 - 29.0 mg/dL BT MAIN-STATION Random 1 Creatinine, Ur 259.6 20 - 370 mg/dL BT MAIN-STATION 1 Urine 99.4 (H) 0 - 29 mg/g UCR BT MAIN-STATION Microalbumin Comment: 1 To minimize intra-individual variation, analysis of three random urine samples collected over the course of a week is recommended. Performing Organization Address City/[facility] Phone Number MISYS BT MAIN-STATION 1 * HEMOGLOBIN A1C (03/16/2018 10:35 AM MOLDED GRID AND PARTS INSPECTOR) Hemoglobin A1c 7.5 (H) 4.3 - 6.1 % BT DIAGNOSTIC IMMUNOLOGY Est Average 168.6 mg/dL BT DIAGNOSTIC Gluc IMMUNOLOGY Specimen Blood Performing Organization Address [facility] Phone Number MISYS BT DIAGNOSTIC IMMUNOLOGY * COMPREHENSIVE METABOLIC PANEL(DBIL NOT INCLUDED) (03/16/2018 10:35 AM MOLDED GRID AND PARTS INSPECTOR) Albumin 4.5 4.2 - 5.5 g/dL BT [...] MAIN-STATION 1 Specimen Blood Performing Organization Address [facility] Phone Number MISYS BT MAIN-STATION 1 * LIPID PROFILE (03/16/2018 10:35 AM MOLDED GRID AND PARTS INSPECTOR) Cholesterol 171 mg/dL BT MAIN-STATION Comment: 1 REFERENCE RANGE: Desirable: <200 mg/dL Borderline: 200-240 mg/dL High Risk: >240 mg/dL Triglyceride 156 (H) <150 mg/dL BT MAIN-STATION Comment: 1 REFERENCE RANGE: Normal: <150 mg/dL Borderline High: 150-199 mg/dL High: 200-499 mg/dL Very High: >fg=055 mg/dL HDL 26 mg/dL BT MAIN-STATION Comment: 1 Increased CHD risk: <40 mg/dL Decreased CHD risk: >60 mg/dL LDL 114 mg/dL BT MAIN-STATION Comment: 1 REFERENCE RANGE: Optimal: <100 mg/dL Near Optimal: 100-129 mg/dL Borderline High: 130-159 mg/dL High: 160-189 mg/dL Very High: >ah=587 mg/dL Specimen Blood Performing Organization Address City/State/Zipcode Phone Number [place] BT MAIN-STATION 1 * DIABETIC FOOT EXAM (03/14/2018 11:45 AM MOLDED GRID AND PARTS INSPECTOR) Narrative Performed At Yaquelin Rojas NP 03/14/20181:35 PM Diabetic Foot Exam was performed at 03/14/2018 11:52 AM.Right foot sensation is normal, right foot pulses are normal, right foot appearance is normal.Left foot sensation is normal,left foot pulses are normal, left foot appearance is normal.Bilateral great toes with thickened yellowish discoloration * GLUCOSE POC (03/14/2018 11:36 AM MOLDED GRID AND PARTS INSPECTOR) Glucose POC 192 (H) 74 - 106 mg/dL [facility] Performing Organization Address City/State/[facility] Phone Number [place] [facility] * POC RAPID HIV (03/14/2018) Rapid HIV Negative Result Rapid HIV Pass Control after 2017 Insurance Type Payer Benefit Subscriber ID Effective Phone Address Plan / Dates Group HOMELESS KRYSTINA HOMELESS xxxxxxx 2018- [phone] [id number] [facility] [address] [place] [address]
[2018-04-29] MEDS: PIPER-TAZ 3.375 GM 50 ML IV SCH ×4 (02:38→21:22)
[2018-04-29 02:55] LABS: CLARITY,URINE CLEAR (CLEAR); COLOR,URINE AMBER (YELLOW)
[2018-04-29 02:56] LABS: BILIRUBIN,URINE 2+ (NEGATIVE); EPITHELIAL CELLS,URINE FEW /LPF; KETONES,URINE TRACE (NEGATIVE); LEUKOCYTE ESTERASE ,URINE NEGATIVE (NEGATIVE); NITRITE,URINE NEGATIVE (NEGATIVE); PROTEIN,URINE DIPSTICK 1+ (NEGATIVE); RBC,URINE 0-5 /HPF (0-5); URINE UROBILINOGEN 4 mg/dL (0.2 - 1); WBC,URINE (MAN) 0-5 /HPF (0-5)
[2018-04-29 03:20] LABS: BASOPHILS % 0.1 % (0.0-1.0); HEMATOCRIT 41.3 % (38.2-49.6); HEMOGLOBIN 14.1 g/dL (14.0-18.0); LYMPHOCYTES % 5.7 % (18.0-39.1); MEAN CORPUSCULAR HEMOGLOBIN 32.6 pg (28-32); MEAN CORPUSCULAR HGB CONC 34.1 g/dL (31-35); MEAN CORPUSCULAR VOLUME 95.4 fL (81-99); MONOCYTES # (AUTO) 0.9 (0.2-0.8); MONOCYTES % 4.8 % (4.4-11.3); NEUTROPHILS # (AUTO) 15.7 (2.1-6.9); NEUTROPHILS % 88.9 % (38.7-80.0); PLATELET COUNT 155 x10e3/uL (140-360); RED BLOOD COUNT 4.33 x10e6/uL (4.3-5.7); RED CELL DISTRIBUTION WIDTH 13.3 % (11.7-14.4)
--- NOTE | 2018-04-29 03:20 | NUR ---
pt resting in poc, easily aroused, skin w/d resp nonlab. nad noted.
[2018-04-29 03:35] LABS: AMYLASE 911 U/L (25-125); LIPASE 1069 U/L (8-78)
[2018-04-29 03:37] LABS: ALBUMIN 3.3 g/dL (3.5-5.0); ANION GAP 16.6 mmol/L (8-16); CALCIUM 8.7 mg/dL (8.4-10.2); CREATININE, SERUM 1.89 mg/dL (0.72-1.25); POTASSIUM 3.6 mmol/L (3.5-5.1)
[2018-04-29] MEDS: SODIUM CHLORIDE 0.9% 1000ML 1,000 ML IV SCH ×5 (03:45→21:22)
[2018-04-29] MEDS ORDERED: SODIUM CHLORIDE 0.9% 1000ML 1,000 ML IV ONE (04:00)
--- NOTE | 2018-04-29 04:14 | NUR ---
DR DIAL SPOKE WITH DR BREWER REGARDING LABS, RECEIVED ORDERS FOR CHANGE IN IVF'S AND NS BOLUS
[2018-04-29] MEDS ORDERED: GLIPIZIDE ER10 MG PO (05:42)
[2018-04-29] MEDS ORDERED: AMLODIPINE BESY10 MG PO (05:42)
[2018-04-29] MEDS ORDERED: PIOGLITAZONE HC45 MG PO (05:42)
[2018-04-29] MEDS ORDERED: ESIDRIX25 MG PO (05:42)
[2018-04-29] MEDS ORDERED: ASPIR 8181 MG PO (05:45)
--- NOTE | 2018-04-29 06:44 | NUR ---
dr tejada informed of blood culture result by dr lopez.
--- NOTE | 2018-04-29 06:44 | NUR ---
rc'd call from lab regarding blood culture. bc positive for gram negative navid. dr crowder informed.
--- NOTE | 2018-04-29 07:23 | NUR ---
REPORT TO KWADWO HICKEY
[2018-04-29] MEDS: INSULIN REGULAR, HUMAN 100 UNIT/1 ML 3ML VIAL SQ SCH ×2 (08:26→11:48)
[2018-04-29] MEDS: HYDROMORPHONE 2MG/ML 2 MG/ML ML IV PRN ×2 (08:54→17:41)
--- NOTE | 2018-04-29 09:43 | Consultation ---
DATE OF CONSULTATION: April 29, 2018 REFERRING PHYSICIAN: Dr. Laboy. HISTORY OF PRESENT ILLNESS: Patient is a 63-year-old male who presents with complaints of abdominal pain. He says the pain is in mid abdomen, started 2 days ago. Came to the emergency room 2 days ago, was evaluated with CT scan of the abdomen which revealed no acute findings, but did have a mildly dilated bile duct and he was sent home; however, his pain persisted. He has had associated fever. Evaluation when he returned revealed elevated bilirubin of 5.7 and is over 8 today, also elevated white blood cell count which was 11,000 and now 17,000. Ultrasound of the gallbladder reveals sludge with a distended gallbladder, also elevated amylase and lipase suggestive of pancreatitis. PAST MEDICAL HISTORY: Otherwise negative. only for diabetes and hypertension. MEDICATIONS: At home are amlodipine, aspirin, glyburide, hydrochlorothiazide, Actos, glipizide, lisinopril, and Janumet XR. ALLERGIES: HE HAS NO KNOWN ALLERGIES. PREVIOUS SURGERY: Only previous surgery was orthopedic surgery 10 years ago. FAMILY HISTORY: Noncontributory. SOCIAL HISTORY: The patient is . He does not smoke cigarettes or drink alcohol. REVIEW OF SYSTEMS: As stated above; otherwise, was negative. He has no chest pain, no shortness of breath. He has had fever. PHYSICAL EXAMINATION GENERAL: The patient is awake and alert. VITAL SIGNS: Temperature 101.5 yesterday, afebrile now with normal heart rate and normal blood pressure. HEENT: Reveals light scleral icterus. NECK: He has no masses. LUNGS: Equal breath sounds, clear bilaterally. CARDIAC: Regular rate and rhythm with no murmur. ABDOMEN: Tender in the mid abdomen and epigastrium. There is no distension. There is no mass. There is no organomegaly. EXTREMITIES: Warm. There was no edema. Pulses are palpable. NEUROLOGIC: Intact. LABORATORY DATA: White blood cell count today is 17.7, hemoglobin 14.1, and hematocrit 41. Chemistries reveal mildly elevated BUN of 27 and creatinine 1.89, bilirubin is 8.3; however, the alkaline phosphatase is normal. Amylase is 911 and lipase is 1069. He also had blood cultures done on his arrival, which reported as having Gram negative rods. ASSESSMENT: A 63-year-old male with abdominal pain, findings suggestive of pancreatitis with also positive blood cultures. Agree with the plan for IV antibiotics and fluids and further evaluation of MRCP. Findings suggest possible cholangitis. There are no signs of peritonitis at this time, however. Patient may also require cholecystectomy pending on the results of the workup. This was explained to the patient. Thank you for asking me see to see Mr. Kirkland. Job#: [id number] JOYCE
[2018-04-29] MEDS ORDERED: DEXTROSE 50% SYRINGE 50 ML IV PRN (10:00)
[2018-04-29] MEDS ORDERED: ACETAMINOPHEN 1000 MG/100 ML IV PRN (10:00)
[2018-04-29] MEDS: INSULIN LISPRO 100 UNIT/1 ML 3ML VIAL SQ SCH ×3 (11:49→19:54)
--- NOTE | 2018-04-29 11:51 | Diagnostic Imaging Report ---
MRCP History: Evaluate for choledocholithiasis. Comparison: None. Technique: Multiplanar, multisequence images of the abdomen were obtained per MRCP protocol. 3D volume rendered reformation images of the biliary tree were performed. No intravenous gadolinium was administered. Findings: Biliary tree: The intra and extrahepatic biliary ducts, cystic duct, common bile duct and the pancreatic duct appear normal. No evidence of biliary ductal dilatation. The gallbladder appears normal. No biliary or gallbladder filling defect identified to suggest calculi. Pancreas duct: Not dilated. Liver: No evidence of mass. Spleen: No splenomegaly. Normal signal. No evidence of mass. Pancreas: Normal signal. No evidence of mass Kidneys: No hydronephrosis. Bilateral simple appearing renal cysts, largest measuring up to 5.7 cm on the right and 2.7 cm on the left. Adrenal glands: No evidence for mass. Lymph nodes: No lymphadenopathy. Bowel: The stomach and visualized portions of the small bowel and large bowel are normal in diameter normal wall thickness. Partially visualized appendix appears unremarkable. Vasculature: Aorta and IVC are normal in morphology. Bones/Soft tissues: Normal marrow signal. No focal osseous lesions. IMPRESSION: No acute MRCP findings. No evidence of choledocholithiasis or biliary ductal dilatation. Signed by: Dr. Dianne Loo MD on 04/29/2018 11:48 AM
[2018-04-29] MEDS: VANCOMYCIN 1GM/NS 250 ML 250 ML IV SCH ×2 (13:24→22:12)
[2018-04-29 15:48] VITALS: BP 145/69
[2018-04-29 16:33] VITALS: BP 145/69
[2018-04-29] MEDS: FAMOTIDINE 20 MG/2 ML VIAL IV SCH (17:22)
[2018-04-29 20:00] VITALS: BP 175/84
[2018-04-29 20:09] VITALS: BP 175/84
[2018-04-30] VITALS (8 sets, daily range): BP systolic 138–177; BP diastolic 63–89
[2018-04-30] MEDS ORDERED: METRONIDAZOLE 750MG/NS 150ML 150 ML IV STA (01:27)
[2018-04-30] MEDS: METRONIDAZOLE 500MG/NS 100ML 100 ML IV SCH ×2 (01:46→08:37)
[2018-04-30] MEDS: LACTATED RINGER'S 1,000 ML IV SCH ×5 (04:06→20:51)
[2018-04-30] MEDS: PIPER-TAZ 3.375 GM 50 ML IV SCH ×4 (04:06→22:00)
[2018-04-30 05:03] LABS: BASOPHILS % 0.4 % (0.0-1.0); EOSINOPHILS # (AUTO) 0.1 (0.0-0.4); EOSINOPHILS % 1.1 % (0.0-6.0); HEMATOCRIT 37.5 % (38.2-49.6); HEMOGLOBIN 12.9 g/dL (14.0-18.0); MEAN CORPUSCULAR HGB CONC 34.4 g/dL (31-35); MEAN CORPUSCULAR VOLUME 95.9 fL (81-99); MONOCYTES # (AUTO) 0.6 (0.2-0.8); MONOCYTES % 6.1 % (4.4-11.3); NEUTROPHILS # (AUTO) 7.3 (2.1-6.9); NEUTROPHILS % 80.8 % (38.7-80.0); PLATELET COUNT 123 x10e3/uL (140-360); RED BLOOD COUNT 3.91 x10e6/uL (4.3-5.7); RED CELL DISTRIBUTION WIDTH 13.5 % (11.7-14.4)
[2018-04-30 05:24] LABS: ALANINE AMINOTRANSFERASE 113 IU/L (0-55); ALBUMIN 2.7 g/dL (3.5-5.0); ALBUMIN/GLOBULIN RATIO 0.9 (0.8-2.0); ALKALINE PHOSPHATASE 96 IU/L (40-150); ANION GAP 14.2 mmol/L (8-16); BLOOD UREA NITROGEN 19 mg/dL (7-26); BUN/CREATININE RATIO 16 (6-25); CALCIUM 8.2 mg/dL (8.4-10.2); CARBON DIOXIDE 21 mmol/L (22-29); CHLORIDE 110 mmol/L (98-107); CREATININE, SERUM 1.16 mg/dL (0.72-1.25); EST GLOMERULAR FILTRATION RATE > 60 ML/MIN (60-); GLUCOSE 134 mg/dL (74-118); POTASSIUM 3.2 mmol/L (3.5-5.1); SODIUM 142 mmol/L (136-145)
[2018-04-30 05:47] LABS: MAGNESIUM 2.1 MG/DL (1.3-2.1)
[2018-04-30] MEDS ORDERED: METRONIDAZOLE 500MG/NS 100ML 100 ML IV SCH (06:00)
[2018-04-30] MEDS: HYDRALAZINE HCL 20 MG/ML VIAL IV PRN ×2 (06:25→21:15)
[2018-04-30] MEDS ORDERED: POTASSIUM CHLORIDE 20MEQ/100ML 200 ML IV ONE (06:45)
[2018-04-30] MEDS: INSULIN LISPRO 100 UNIT/1 ML 3ML VIAL SQ SCH ×4 (07:30→21:38)
[2018-04-30] MEDS: AMLODIPINE BESYLATE 10 MG TAB PO SCH (08:37)
[2018-04-30] MEDS: FAMOTIDINE 20 MG/2 ML VIAL IV SCH ×2 (08:37→16:32)
[2018-04-30] MEDS: VANCOMYCIN 1GM/NS 250 ML 250 ML IV SCH ×2 (11:00→23:18)
[2018-05-01] VITALS (9 sets, daily range): BP systolic 139–191; BP diastolic 72–93
[2018-05-01] MEDS: METRONIDAZOLE 500MG/NS 100ML 100 ML IV SCH ×5 (02:05→20:28)
[2018-05-01] MEDS: PIPER-TAZ 3.375 GM 50 ML IV SCH ×4 (03:59→22:55)
[2018-05-01] MEDS: LACTATED RINGER'S 1,000 ML IV SCH ×2 (03:59)
[2018-05-01 05:13] LABS: BASOPHILS % 0.5 % (0.0-1.0); EOSINOPHILS # (AUTO) 0.1 (0.0-0.4); EOSINOPHILS % 1.9 % (0.0-6.0); HEMATOCRIT 35.6 % (38.2-49.6); HEMOGLOBIN 12.5 g/dL (14.0-18.0); LYMPHOCYTES # (AUTO) 0.8 (1.0-3.2); MEAN CORPUSCULAR HEMOGLOBIN 32.5 pg (28-32); MEAN CORPUSCULAR HGB CONC 35.1 g/dL (31-35); MEAN CORPUSCULAR VOLUME 92.5 fL (81-99); MONOCYTES # (AUTO) 0.4 (0.2-0.8); MONOCYTES % 6.7 % (4.4-11.3); NEUTROPHILS # (AUTO) 4.9 (2.1-6.9); NEUTROPHILS % 78.6 % (38.7-80.0); PLATELET COUNT 131 x10e3/uL (140-360); RED BLOOD COUNT 3.85 x10e6/uL (4.3-5.7); RED CELL DISTRIBUTION WIDTH 13.2 % (11.7-14.4)
[2018-05-01 05:31] LABS: ALANINE AMINOTRANSFERASE 72 IU/L (0-55); ALBUMIN 2.5 g/dL (3.5-5.0); ALBUMIN/GLOBULIN RATIO 0.8 (0.8-2.0); ALKALINE PHOSPHATASE 94 IU/L (40-150); ANION GAP 13.8 mmol/L (8-16); BLOOD UREA NITROGEN 10 mg/dL (7-26); BUN/CREATININE RATIO 10 (6-25); CALCIUM 8.3 mg/dL (8.4-10.2); CARBON DIOXIDE 23 mmol/L (22-29); CHLORIDE 104 mmol/L (98-107); CREATININE, SERUM 0.97 mg/dL (0.72-1.25); EST GLOMERULAR FILTRATION RATE > 60 ML/MIN (60-); GLUCOSE 143 mg/dL (74-118); SODIUM 138 mmol/L (136-145)
[2018-05-01 05:33] LABS: POTASSIUM 2.8 mmol/L (3.5-5.1)
[2018-05-01 06:05] LABS: LIPASE 42 U/L (8-78)
[2018-05-01] MEDS: HYDRALAZINE HCL 20 MG/ML VIAL IV PRN (06:23)
[2018-05-01] MEDS ORDERED: POTASSIUM CHLORIDE 20 MEQ TAB CR PO STA (06:40)
[2018-05-01] MEDS ORDERED: POTASSIUM CHLORIDE 20MEQ/100ML 200 ML IV ONE (06:45)
[2018-05-01] MEDS ORDERED: HYDROCODONE/APAP 5MG-325MG TAB PO PRN (06:45)
[2018-05-01] MEDS ORDERED: POTASSIUM CHLORIDE 20 MEQ TAB CR PO SCH ×3 (07:15→12:00)
[2018-05-01] MEDS ORDERED: POTASSIUM CHLORIDE 20MEQ/100ML 100 ML IV SCH (08:00)
[2018-05-01] MEDS: LISINOPRIL 20 MG TAB PO SCH (08:46)
[2018-05-01] MEDS: INSULIN LISPRO 100 UNIT/1 ML 3ML VIAL SQ SCH ×4 (08:46→21:00)
[2018-05-01] MEDS: AMLODIPINE BESYLATE 10 MG TAB PO SCH (08:46)
[2018-05-01] MEDS: FAMOTIDINE 20 MG/2 ML VIAL IV SCH ×2 (08:46→17:25)
[2018-05-01] MEDS: HYDROCHLOROTHIAZIDE 25 MG TAB PO SCH (08:46)
[2018-05-01] MEDS ORDERED: NON-FORMULARY MEDICATION (Lisinopril 40 MG) PO SCH (09:00)
[2018-05-01] MEDS: VANCOMYCIN 1GM/NS 250 ML 250 ML IV SCH ×2 (11:04→22:30)
[2018-05-01] MEDS: ONDANSETRON HCL INJ 2 MG/ML VIAL IV PRN (16:09)
--- NOTE | 2018-05-01 21:07 | NUR ---
DR BRISCOE IS ON THE UNIT TO SEE THE PATIENT, HE'S MADE AWARE THAT THE PATIENT HAS NOT HAD MERYL MOVEMENTS SINCE TUESDAY. NEW ORDERS RECEIVED. PATIENT CONDITION IS STABLE, NO VOMITING NOTED BUT HE C/O NAUSEA. HE DENIES ABDOMINAL PAIN, CALL LIGHT WITHIN EASY REACH.
[2018-05-01] MEDS ORDERED: MAGNESIUM HYDROXIDE 30 ML UDC PO ONE (21:15)
[2018-05-02] MEDS: ONDANSETRON HCL INJ 2 MG/ML VIAL IV SCH ×4 (01:08→18:18)
--- NOTE | 2018-05-02 01:15 | NUR ---
PATIENT IS ASLEEP, HE'S EASY TO AROUSE. NO RESPIRATORY DISTRESS OBSERVED, HE DENIES ABDOMINAL PAIN AND NAUSEA. CALL LIGHT WITHIN EASY REACH, INSTRUCTED TO CALL FOR ASSISTANCE NEEDED.
[2018-05-02] MEDS: METRONIDAZOLE 500MG/NS 100ML 100 ML IV SCH (02:50)
[2018-05-02] MEDS: PIPER-TAZ 3.375 GM 50 ML IV SCH ×4 (04:30→21:23)
[2018-05-02 04:52] LABS: BASOPHILS % 0.4 % (0.0-1.0); EOSINOPHILS # (AUTO) 0.1 (0.0-0.4); EOSINOPHILS % 1.7 % (0.0-6.0); HEMATOCRIT 37.3 % (38.2-49.6); LYMPHOCYTES % 19.4 % (18.0-39.1); MEAN CORPUSCULAR HEMOGLOBIN 31.7 pg (28-32); MEAN CORPUSCULAR HGB CONC 34.9 g/dL (31-35); MONOCYTES # (AUTO) 0.6 (0.2-0.8); MONOCYTES % 10.9 % (4.4-11.3); NEUTROPHILS # (AUTO) 3.5 (2.1-6.9); NEUTROPHILS % 67.4 % (38.7-80.0); PLATELET COUNT 138 x10e3/uL (140-360); RED CELL DISTRIBUTION WIDTH 13.1 % (11.7-14.4)
[2018-05-02 06:02] VITALS: BP 179/93
[2018-05-02 06:48] LABS: BLOOD UREA NITROGEN 9 mg/dL (7-26); BUN/CREATININE RATIO 8 (6-25); CALCIUM 8.7 mg/dL (8.4-10.2); CARBON DIOXIDE 28 mmol/L (22-29); CHLORIDE 103 mmol/L (98-107); EST GLOMERULAR FILTRATION RATE > 60 ML/MIN (60-); GLUCOSE 121 mg/dL (74-118); LIPASE 50 U/L (8-78); MAGNESIUM 1.9 MG/DL (1.3-2.1); SODIUM 139 mmol/L (136-145)
[2018-05-02] MEDS ORDERED: POTASSIUM CHLORIDE 20 MEQ TAB CR PO STA (07:01)
[2018-05-02 07:02] LABS: ALBUMIN 2.8 g/dL (3.5-5.0); BILIRUBIN,DIRECT 2.1 mg/dL (0.0-0.5)
[2018-05-02] MEDS: INSULIN LISPRO 100 UNIT/1 ML 3ML VIAL SQ SCH ×4 (07:30→20:48)
[2018-05-02 08:02] VITALS: BP 165/81
[2018-05-02 08:20] VITALS: BP 115/81
[2018-05-02] MEDS: HYDROCHLOROTHIAZIDE 25 MG TAB PO SCH (08:35)
[2018-05-02] MEDS: FAMOTIDINE 20 MG/2 ML VIAL IV SCH ×2 (08:35→18:18)
[2018-05-02] MEDS: LISINOPRIL 20 MG TAB PO SCH (08:35)
[2018-05-02] MEDS ORDERED: NIFEDIPINE CR 30 MG TAB PO SCH (09:00)
[2018-05-02] MEDS ORDERED: MAGNESIUM HYDROXIDE 30 ML UDC PO ONE (09:00)
--- NOTE | 2018-05-02 11:35 | NUR ---
SOCIAL WORK INITIAL ASSESSMENT [employer] Steward/Stewardess to bedside to discuss plan of care with patient/family. CM/SW role and care transitions discussed. Anticipated discharge plan discussed along with duration of care. CM/SW discussed patients right to make decisions in care. CM/SW work hours given. Patient lives: IN OWN HOUSE WITH COMMON LAW GIRLFRIEND Admit/Transfer: VIA HOME POA/Emergency contact: GIRLFRIENLilia RODRIGUEZ [phone] Current/Previous Home Health: NONE PCP/Follow-up Care: ESTRELLA Current/Previous DME: NONE Other Services: NONE Employment Status: STATES CANT WORK RIGHT NOW BECAUSE SICK Areas of Concerns: SELF PAY Referral Needs: GAVE PACKET OF INFORMATION WITH COMMUNITY RESOURCES FOR ASSISTANCE WITH LOW TO NO INCOME TO PATIENT. RESOURCES THAT PATIENT MAY BE ABLE TO FOLLOW UP UPON DISCHARGE. PT EDUCATED ON EACH RESOURCE AND UNDERSTANDING HOW TO FOLLOW UP TO SEE IF QUALIFIED FOR EACH RESOURCE. Education Needs: NONE IMM/KENYNO given and signed (if applicable): NA Goal for discharge: RETURN HOME INDEPENDENTLY CM/SW left business card at the bedside with contact information. Name and number was also written on the patients whiteboard. Patient verbalized understanding of discussion. CM will follow-up with ongoing discharge and transition of care needs.
[2018-05-02 12:16] VITALS: BP 170/84
[2018-05-02 16:07] VITALS: BP 144/74
[2018-05-02 20:00] VITALS: BP 146/77
[2018-05-03] VITALS (8 sets, daily range): BP systolic 136–197; BP diastolic 66–94
[2018-05-03] MEDS: ONDANSETRON HCL INJ 2 MG/ML VIAL IV SCH ×4 (00:17→18:15)
[2018-05-03] MEDS: PIPER-TAZ 3.375 GM 50 ML IV SCH ×4 (04:42→21:42)
[2018-05-03 04:51] LABS: BASOPHILS # (AUTO) 0.1 (0.0-0.1); BASOPHILS % 0.8 % (0.0-1.0); EOSINOPHILS # (AUTO) 0.2 (0.0-0.4); EOSINOPHILS % 2.9 % (0.0-6.0); HEMATOCRIT 36.5 % (38.2-49.6); HEMOGLOBIN 12.8 g/dL (14.0-18.0); LYMPHOCYTES # (AUTO) 1.7 (1.0-3.2); LYMPHOCYTES % 28.2 % (18.0-39.1); MEAN CORPUSCULAR HEMOGLOBIN 32.2 pg (28-32); MEAN CORPUSCULAR HGB CONC 35.1 g/dL (31-35); MEAN CORPUSCULAR VOLUME 91.7 fL (81-99); MONOCYTES # (AUTO) 0.8 (0.2-0.8); MONOCYTES % 13.5 % (4.4-11.3); NEUTROPHILS # (AUTO) 3.3 (2.1-6.9); NEUTROPHILS % 54.3 % (38.7-80.0); PLATELET COUNT 147 x10e3/uL (140-360); RED BLOOD COUNT 3.98 x10e6/uL (4.3-5.7); RED CELL DISTRIBUTION WIDTH 13.1 % (11.7-14.4)
[2018-05-03 05:21] LABS: ALANINE AMINOTRANSFERASE 65 IU/L (0-55); ALBUMIN 2.7 g/dL (3.5-5.0); ALKALINE PHOSPHATASE 105 IU/L (40-150); ANION GAP 13.9 mmol/L (8-16); BILIRUBIN,DIRECT 1.7 mg/dL (0.0-0.5); BLOOD UREA NITROGEN 10 mg/dL (7-26); BUN/CREATININE RATIO 9 (6-25); CALCIUM 8.5 mg/dL (8.4-10.2); CARBON DIOXIDE 26 mmol/L (22-29); CHLORIDE 101 mmol/L (98-107); CREATININE, SERUM 1.17 mg/dL (0.72-1.25); EST GLOMERULAR FILTRATION RATE > 60 ML/MIN (60-); GLUCOSE 123 mg/dL (74-118); LIPASE 46 U/L (8-78); MAGNESIUM 1.8 MG/DL (1.3-2.1); SODIUM 138 mmol/L (136-145)
[2018-05-03 05:27] LABS: POTASSIUM 2.9 mmol/L (3.5-5.1)
[2018-05-03] MEDS ORDERED: POTASSIUM CHLORIDE 20MEQ/100ML 400 ML IV ONE (05:45)
[2018-05-03] MEDS ORDERED: POTASSIUM CHLORIDE 20MEQ/100ML 100 ML IV ONE ×2 (06:00→11:15)
[2018-05-03] MEDS ORDERED: POTASSIUM CHLORIDE 20MEQ/100ML 100 ML IV SCH (06:00)
[2018-05-03] MEDS: POTASSIUM CHLORIDE 20 MEQ TAB CR PO SCH ×2 (06:00→10:21)
--- NOTE | 2018-05-03 07:10 | NUR ---
RECEIVED PATIENT RESTING IN BED. NO ACUTE DISTRESS NOTED. CALL LIGHT WITHIN REACH. BED IN THE LOWEST POSITION.
--- NOTE | 2018-05-03 07:15 | NUR ---
PATIENT OFF THE UNIT FOR PROCEDURE.
[2018-05-03] MEDS: INSULIN LISPRO 100 UNIT/1 ML 3ML VIAL SQ SCH ×4 (07:30→20:21)
[2018-05-03] MEDS ORDERED: BUPIVACAINE HCL 0.5% INJ 30 ML VIAL INJ ONE (07:31)
[2018-05-03] MEDS ORDERED: HYDROCODONE/APAP 7.5MG-325MG 1 EA TAB PO PRN (09:00)
[2018-05-03] MEDS ORDERED: ONDANSETRON HCL INJ 2 MG/ML VIAL IV PRN (09:00)
[2018-05-03] MEDS ORDERED: FENTANYL CITRATE/PF 100MCG/2 ML INJ ONE ×2 (09:18→17:52)
--- NOTE | 2018-05-03 09:31 | Operative Report ---
DATE OF PROCEDURE: May 03, 2018 PREOPERATIVE DIAGNOSIS: Pancreatitis. POSTOPERATIVE DIAGNOSES 1. Pancreatitis. 2. Cholelithiasis. PROCEDURES 1. Diagnostic laparoscopy. 2. Laparoscopic cholecystectomy. UNDERCOVER AGENT: None. ANESTHESIA: General endotracheal. INDICATIONS AND FINDINGS: Patient is a 63-year-old male admitted to the hospital with complaints of abdominal pain. Was found to have pancreatitis, as well as jaundice. Had sludge in the gallbladder. At surgery, the patient was found to have a gallbladder that was distended and mildly edematous. Contained at least 1 stone. Cystic duct was about 3 mm in diameter. Common bile duct was about 6 mm in diameter. Liver, stomach and lower abdomen all appeared normal. TECHNIQUE: After adequate general endotracheal anesthesia with the patient in the supine position, the abdomen was prepped and draped in a sterile fashion with ChloraPrep solution. Skin in the umbilicus was infiltrated with 0.5% Marcaine. Incision was made in the umbilicus. Abdominal wall was elevated. Veress needle was introduced. Pneumoperitoneum was then created. A 10-mm trocar and cannula was then passed through the umbilical wound. Laparoscopic camera was introduced. Initial laparoscopy revealed the liver, stomach and lower abdomen all appeared normal. A 10-mm trocar and cannula was placed in the epigastrium and two 5-mm trocars and cannulas placed in the right upper quadrant. These were placed under direct vision. Fundus of the gallbladder was grasped and retracted superiorly. There were adhesions over the neck and fundus of the gallbladder involving the omentum. These were lysed staying close the gallbladder. The gallbladder cystic duct junction was dissected free. Cystic artery was also dissected free. The neck of the gallbladder was completely dissected free. Cystic artery was divided between Hemoclips close to the gallbladder. Cystic duct was milked back towards the gallbladder and divided between Hemoclips with 3 clips being left on the common bile duct side. The gallbladder was dissected free from the liver using scissors and electrocautery. Once it was completely free, it was placed into an Endopouch and brought out through the epigastric cannula. There was at least 1 stone palpable. Gallbladder bed was inspected for hemostasis, which was seen to be adequate. It was irrigated with saline. All fluid aspirated. Inspected for hemostasis which was seen to be adequate. Instruments and cannulas were then removed. Pneumoperitoneum was evacuated. Wounds were then closed. Fascia in the umbilical and epigastric wound closed with 0 Vicryl. Skin to all wounds closed with sydney. Sterile dressings applied. Patient tolerated the procedure well. Estimated blood loss was 20 mL. There were no complications. All counts were correct. Patient was taken to the recovery room in satisfactory condition. Job#: [id number] RI cc:LEXII BREWER MD
--- NOTE | 2018-05-03 09:55 | NUR ---
PATIENT BACK TO UNIT.
[2018-05-03] MEDS: SODIUM CHLORIDE 0.9% 1000ML 1,000 ML IV SCH ×2 (10:19→21:43)
[2018-05-03] MEDS: FAMOTIDINE 20 MG/2 ML VIAL IV SCH ×2 (10:20→17:06)
[2018-05-03] MEDS: HYDROCHLOROTHIAZIDE 25 MG TAB PO SCH (10:21)
[2018-05-03] MEDS: LISINOPRIL 20 MG TAB PO SCH (10:21)
[2018-05-03] MEDS: NIFEDIPINE CR 30 MG TAB PO SCH (10:21)
[2018-05-03] MEDS: HYDROMORPHONE 2MG/ML 2 MG/ML ML IV PRN ×2 (10:30→21:42)
[2018-05-03] MEDS: ONDANSETRON HCL INJ 2 MG/ML VIAL IV PRN (10:30)
[2018-05-03 10:50] LABS: ANION GAP 15.3 mmol/L (8-16); CALCIUM 8.8 mg/dL (8.4-10.2); CREATININE, SERUM 1.24 mg/dL (0.72-1.25); POTASSIUM 3.3 mmol/L (3.5-5.1)
[2018-05-03] MEDS: HYDRALAZINE HCL 20 MG/ML VIAL IV PRN (12:13)
[2018-05-03] MEDS ORDERED: ROCURONIUM BROMIDE 10 MG/ML 5ML VIAL ONE (17:42)
[2018-05-03] MEDS ORDERED: GLYCOPYRROLATE INJ 1MG/ 5 ML SYR ONE (17:42)
[2018-05-03] MEDS ORDERED: METOCLOPRAMIDE HCL 10 MG/2ML VIAL ONE (17:42)
[2018-05-03] MEDS ORDERED: NEOSTIGMINE 5 MG/5ML SYR ONE (17:42)
[2018-05-03] MEDS ORDERED: LIDOCAINE HCL 2% LOCAL INJ 5 ML SDV VIAL INJ ONE (17:42)
[2018-05-03] MEDS ORDERED: ONDANSETRON HCL INJ 2 MG/ML VIAL ONE (17:42)
[2018-05-03] MEDS ORDERED: SEVOFLURANE INHAL SOLN 250 ML PEN BTL ONE (17:42)
[2018-05-03] MEDS ORDERED: PROPOFOL IV EMULSION 10 MG/ML 20 ML VIAL ONE (17:42)
[2018-05-03] MEDS ORDERED: MIDAZOLAM HCL 2 MG/2 ML VIAL ONE (17:52)
--- NOTE | 2018-05-03 19:02 | NUR ---
Nutrition Screen Note RD Recommendation for Physician: -Continue ADA diet as ordered Plan of Care: RD following, monitoring for tolerance and adequacy Nutrition reason for involvement: LOS Primary Diagnose(s): pancreatitis with positive blood cultures PMH: diabetes and hypertension Ht: 66in Wt: 182.37lb BMI: 29.4kg/m2 IBW: 142lb RD Assessment: (05/03) Chart reviewed. Labs and meds reviewed. 63yo M, who is admitted for abdominal pain. Pt just came out from lap cholecystectomy this afternoon. Pt reports nausea and abdominal pain after surgery. Pt has had fair appetite since admission. Pt states sometimes, I feel so nauseated that I dont want to eat. Zofran has been ordered. No vomiting episode noted. LBM 05/02. Pt denies any chewing or swallowing difficulty. Pt ate ok and denied any weight loss IRRADIATED [employer]. Will continue to monitor and follow. Current Diet: ADA diet Malnutrition Evaluation (05/03/2018) The patient does not meet criteria for a specified degree of malnutrition at this time. Will re-evaluate at follow-up as appropriate. Diet Education Needs Assessment: Diet education indicated, pt is not appropriate at this time. Nutrition Care Level: low Signed: Sade Vanegas, MS, RD, LD
--- NOTE | 2018-05-03 19:16 | NUR ---
REPORT GIVEN TO ONCOMING NURSE. PATIENT IS RESTING IN BED. NO ACUTE DISTRESS NOTED. CALL LIGHT WITHIN REACH. BED IN THE LOWEST POSITION.
[2018-05-04] VITALS (8 sets, daily range): BP systolic 138–161; BP diastolic 66–91
[2018-05-04] MEDS: PIPER-TAZ 3.375 GM 50 ML IV SCH ×4 (03:20→21:28)
[2018-05-04 04:48] LABS: BASOPHILS % 0.3 % (0.0-1.0); EOSINOPHILS # (AUTO) 0.1 (0.0-0.4); HEMATOCRIT 37.8 % (38.2-49.6); HEMOGLOBIN 13.1 g/dL (14.0-18.0); LYMPHOCYTES # (AUTO) 1.8 (1.0-3.2); LYMPHOCYTES % 17.4 % (18.0-39.1); MEAN CORPUSCULAR HEMOGLOBIN 32.3 pg (28-32); MEAN CORPUSCULAR HGB CONC 34.7 g/dL (31-35); MEAN CORPUSCULAR VOLUME 93.3 fL (81-99); MONOCYTES # (AUTO) 1.1 (0.2-0.8); MONOCYTES % 10.6 % (4.4-11.3); NEUTROPHILS # (AUTO) 7.3 (2.1-6.9); NEUTROPHILS % 70.3 % (38.7-80.0); PLATELET COUNT 179 x10e3/uL (140-360); RED BLOOD COUNT 4.05 x10e6/uL (4.3-5.7); RED CELL DISTRIBUTION WIDTH 13.3 % (11.7-14.4)
[2018-05-04 05:20] LABS: ALANINE AMINOTRANSFERASE 101 IU/L (0-55); ALBUMIN 2.7 g/dL (3.5-5.0); ALBUMIN/GLOBULIN RATIO 0.8 (0.8-2.0); ALKALINE PHOSPHATASE 99 IU/L (40-150); BLOOD UREA NITROGEN 9 mg/dL (7-26); BUN/CREATININE RATIO 7 (6-25); CALCIUM 8.4 mg/dL (8.4-10.2); CARBON DIOXIDE 26 mmol/L (22-29); CHLORIDE 98 mmol/L (98-107); CREATININE, SERUM 1.21 mg/dL (0.72-1.25); EST GLOMERULAR FILTRATION RATE > 60 ML/MIN (60-); GLUCOSE 128 mg/dL (74-118); SODIUM 133 mmol/L (136-145)
[2018-05-04] MEDS ORDERED: POTASSIUM CHLORIDE 20 MEQ TAB CR PO STA ×2 (06:42→07:02)
--- NOTE | 2018-05-04 07:20 | NUR ---
RECEIVED PATIENT RESTING IN BED. NO S/S OF DISTRESS NOTED. AT BEDSIDE. CALL LIGHT WITHIN REACH. BED IN THE LOWEST POSITION.
[2018-05-04] MEDS: INSULIN LISPRO 100 UNIT/1 ML 3ML VIAL SQ SCH ×4 (07:30→20:35)
[2018-05-04] MEDS: POTASSIUM CHLORIDE 20 MEQ TAB CR PO SCH (08:19)
[2018-05-04] MEDS: FAMOTIDINE 20 MG/2 ML VIAL IV SCH ×2 (08:19→16:24)
[2018-05-04] MEDS: LISINOPRIL 20 MG TAB PO SCH (08:20)
[2018-05-04] MEDS: NIFEDIPINE CR 30 MG TAB PO SCH (08:20)
[2018-05-04 14:05] LABS: BASOPHILS % 0.3 % (0.0-1.0); EOSINOPHILS # (AUTO) 0.1 (0.0-0.4); EOSINOPHILS % 1.4 % (0.0-6.0); HEMATOCRIT 39.2 % (38.2-49.6); HEMOGLOBIN 13.7 g/dL (14.0-18.0); LYMPHOCYTES # (AUTO) 2.1 (1.0-3.2); MEAN CORPUSCULAR HEMOGLOBIN 32.5 pg (28-32); MEAN CORPUSCULAR HGB CONC 34.9 g/dL (31-35); MEAN CORPUSCULAR VOLUME 93.1 fL (81-99); MONOCYTES # (AUTO) 1.1 (0.2-0.8); MONOCYTES % 10.9 % (4.4-11.3); NEUTROPHILS # (AUTO) 6.2 (2.1-6.9); NEUTROPHILS % 64.9 % (38.7-80.0); PLATELET COUNT 184 x10e3/uL (140-360); RED BLOOD COUNT 4.21 x10e6/uL (4.3-5.7); RED CELL DISTRIBUTION WIDTH 13.2 % (11.7-14.4)
[2018-05-04 14:22] LABS: ANION GAP 11.4 mmol/L (8-16); BLOOD UREA NITROGEN 11 mg/dL (7-26); BUN/CREATININE RATIO 9 (6-25); CALCIUM 8.5 mg/dL (8.4-10.2); CARBON DIOXIDE 27 mmol/L (22-29); CHLORIDE 100 mmol/L (98-107); CREATININE, SERUM 1.19 mg/dL (0.72-1.25); EST GLOMERULAR FILTRATION RATE > 60 ML/MIN (60-); GLUCOSE 175 mg/dL (74-118); MAGNESIUM 1.9 MG/DL (1.3-2.1); POTASSIUM 3.4 mmol/L (3.5-5.1); SODIUM 135 mmol/L (136-145)
[2018-05-04] MEDS: SODIUM CHLORIDE 0.9% 1000ML 1,000 ML IV SCH (18:40)
--- NOTE | 2018-05-04 19:29 | NUR ---
REPORT GIVEN TO ONCOMING NURSE, PATIENT IS RESTING IN BED. NO ACUTE DISTRESS NOTED. AT BEDSIDE. CALL LIGHT WITHIN REACH. BED IN THE LOWEST POSITION.
[2018-05-05 01:11] VITALS: BP_SYST 69
[2018-05-05 01:15] VITALS: BP 140/69
[2018-05-05] MEDS: PIPER-TAZ 3.375 GM 50 ML IV SCH (04:18)
[2018-05-05 05:02] LABS: BASOPHILS % 0.4 % (0.0-1.0); EOSINOPHILS # (AUTO) 0.3 (0.0-0.4); EOSINOPHILS % 3.3 % (0.0-6.0); HEMOGLOBIN 12.3 g/dL (14.0-18.0); LYMPHOCYTES # (AUTO) 2.2 (1.0-3.2); MEAN CORPUSCULAR HEMOGLOBIN 31.7 pg (28-32); MEAN CORPUSCULAR HGB CONC 34.2 g/dL (31-35); MEAN CORPUSCULAR VOLUME 92.8 fL (81-99); MONOCYTES % 11.4 % (4.4-11.3); NEUTROPHILS % 58.2 % (38.7-80.0); PLATELET COUNT 178 x10e3/uL (140-360); RED BLOOD COUNT 3.88 x10e6/uL (4.3-5.7)
[2018-05-05 05:28] LABS: ALANINE AMINOTRANSFERASE 83 IU/L (0-55); ALBUMIN 2.5 g/dL (3.5-5.0); ALKALINE PHOSPHATASE 102 IU/L (40-150); ANION GAP 11.1 mmol/L (8-16); BILIRUBIN,DIRECT 1.2 mg/dL (0.0-0.5); BLOOD UREA NITROGEN 9 mg/dL (7-26); BUN/CREATININE RATIO 9 (6-25); CARBON DIOXIDE 27 mmol/L (22-29); CHLORIDE 102 mmol/L (98-107); CREATININE, SERUM 1.03 mg/dL (0.72-1.25); EST GLOMERULAR FILTRATION RATE > 60 ML/MIN (60-); GLUCOSE 177 mg/dL (74-118); MAGNESIUM 1.9 MG/DL (1.3-2.1); POTASSIUM 3.1 mmol/L (3.5-5.1); SODIUM 137 mmol/L (136-145)
[2018-05-05] MEDS ORDERED: POTASSIUM CHLORIDE 20 MEQ TAB CR PO STA (06:17)
[2018-05-05] MEDS ORDERED: ULTRACET TABLE1 EACH PO (06:21)
[2018-05-05] MEDS ORDERED: CEFUROXIME500 MG PO (06:21)
[2018-05-05 06:30] VITALS: BP 139/70
--- NOTE | 2018-05-05 18:18 | Discharge Summary ---
ADMISSION DIAGNOSES 1. Cholecystitis. 2. Pancreatitis. 3. Type II diabetes. 4. Hypertension. 5. Leukocytosis. 6. Transaminitis. 7. Acute kidney injury versus chronic kidney disease. DISCHARGE DIAGNOSES 1. Cholecystitis. 2. Pancreatitis. 3. Type II diabetes. 4. Hypertension. 5. Leukocytosis. 6. Transaminitis. 7. Acute kidney injury versus chronic kidney disease. 8. Bacteremia with Klebsiella. 9. Hyponatremia. 10. Hypokalemia. 11. Hypocalcemia. 12. Cholelithiasis status post laparoscopic cholecystectomy. HISTORY: Patient has a history of type II diabetes, hypertension, diverticulitis, and TIA. SURGICAL HISTORY: Neck surgery. FAMILY HISTORY: Patient's mom, dad, brother and sister have diabetes. Patient's brother had a stroke. SOCIAL HISTORY: Noncontributory. HOSPITAL COURSE: A 63-year-old male complains of sharp constant periumbilical pain that started on . He denies nausea and vomiting, but admits to chill. Pain is worse with eating and drinking and improves with IV pain medicine. He says this pain seems similar to when he was diagnosed with diverticulitis a few months ago. On admission, EKG showed normal sinus rhythm. Ultrasound of the gallbladder showed distended gallbladder containing sludge. No evidence of acute cholecystitis, cyst in the right kidney. Chest x-ray showed low lung volumes with subsegmental atelectasis. MRCP showed no acute findings. No evidence of choledocholithiasis or biliary ductal dilatation. On May 03, 2018, patient had a laparoscopic cholecystectomy, which turned out to have gallstones. Patient tolerated the procedure well and diet was advanced quickly. Blood culture came back positive for Klebsiella pneumoniae. Urine culture negative. Patient was getting vancomycin and Zosyn throughout hospitalization and was switched to Rocephin once the culture came back and then Ceftin once he went home. Since patient is tolerating diet well and passing gas, he will discharge home today with family. Surgery gave him a prescription for Ultracet and I gave him 8 more days of Ceftin. He will continue the rest of his home medicines and follow up with primary care in 1 to [address] Allison as discussed. Patient and understand discharge instruction and agreed to plan. Vital signs stable. Patient afebrile. Dictated by: Meaghan Vladez NP Job#: [id number]
== END 2018-05-05 07:11 | disposition home or self-care (01) | DRG 417 ==
LOC: ER 16:59 → ERHOLD 22:26 → MED/SURG2 04-29 15:25
PROVIDERS: ADMIT Internal Medicine; ATTEND Internal Medicine
PROC: 0FT44ZZ Resection of Gallbladder, Percutaneous Endoscopic Approach (ICD-10-PCS; principal; 2018-05-03 08:05)
DX: K80.01 Calculus of gallbladder with acute cholecystitis with obstruction (principal); K85.10 Biliary acute pancreatitis without necrosis or infection; N17.9 Acute kidney failure, unspecified; R78.81 Bacteremia; E87.1 Hypo-osmolality and hyponatremia; I10 Essential (primary) hypertension; E78.5 Hyperlipidemia, unspecified; E87.6 Hypokalemia; E11.65 Type 2 diabetes mellitus with hyperglycemia; Z86.73 Personal history of transient ischemic attack (TIA), and cerebral infarction without residual deficits; Z83.3 Family history of diabetes mellitus; Z82.3 Family history of stroke; B96.1 Klebsiella pneumoniae [K. pneumoniae] as the cause of diseases classified elsewhere; E83.41 Hypermagnesemia; E83.51 Hypocalcemia
CPT/HCPCS: 36415; 71045; 74181; 76705; 80048; 80053; 80076; 80202; 81001; 82150; 82948; 83036; 83605; 83690; 83735; 83880; 84132; 85025; 87040; 87071; 87086; 87186; 87205; 88304; 93005; 96367; 96372; 96376; 99284; J0360; J2001; J2250; J2405; J2543; J2765; J3370; J3480; J7030; J7120

== ENCOUNTER 2022-07-02 17:11 | Emergency (ER) | payer MEDICARE, OTHER ==
[~2022-07-02] VITALS: Ht 172.7 cm; Wt 77.1 kg
[~2022-07-02 17:11] MED LIST changes: +AMLODIPINE BESY10 MG PO; +ASPIR 8181 MG PO; +CEFUROXIME500 MG PO; +ESIDRIX25 MG PO; +GLIPIZIDE ER10 MG PO; +PIOGLITAZONE HC45 MG PO; +ULTRACET TABLE1 EACH PO
[2022-07-02 18:01] LABS: BASOPHILS # (AUTO) 0.1 (0.0-0.1); BASOPHILS % 0.8 % (0.0-1.0); EOSINOPHILS # (AUTO) 0.5 (0.0-0.4); EOSINOPHILS % 5.6 % (0.0-6.0); HEMATOCRIT 43.6 % (38.2-49.6); HEMOGLOBIN 15.7 g/dL (14.0-18.0); LYMPHOCYTES # (AUTO) 2.4 (1.0-3.2); LYMPHOCYTES % 27.8 % (18.0-39.1); MEAN CORPUSCULAR VOLUME 88.8 fL (81-99); MONOCYTES # (AUTO) 0.7 (0.2-0.8); MONOCYTES % 7.5 % (4.4-11.3); NEUTROPHILS # (AUTO) 5.1 (2.1-6.9); NEUTROPHILS % 58.1 % (38.7-80.0); PLATELET COUNT 220 x10e3/uL (140-360); RED BLOOD COUNT 4.91 x10e6/uL (4.3-5.7); RED CELL DISTRIBUTION WIDTH 12.2 % (11.7-14.4)
[2022-07-02 18:20] LABS: ALBUMIN 3.8 g/dL (3.5-5.0); ALBUMIN/GLOBULIN RATIO 0.9 (0.8-2.0); ANION GAP 15.7 mmol/L (8-16); CALCIUM 9.3 mg/dL (8.4-10.2); CREATININE, SERUM 1.58 mg/dL (0.72-1.25); POTASSIUM 3.7 mmol/L (3.5-5.1)
[2022-07-02 18:27] LABS: MAGNESIUM 1.8 MG/DL (1.3-2.1)
[2022-07-02] MEDS ORDERED: SODIUM CHLORIDE 0.9% 1000ML 1,000 ML IV ONE ×2 (18:30→18:45)
[2022-07-02] MEDS: INSULIN REGULAR, HUMAN 100 UNIT/1 ML IV ONE ×2 (18:35→18:41)
[2022-07-02] MEDS ORDERED: SODIUM CHLORIDE 0.9% 1000ML 1,000 ML ONE (18:43)
[2022-07-02] MEDS ORDERED: INSULIN REGULAR, HUMAN 100 UNIT/1 ML SQ ONE (18:45)
[2022-07-02 19:55] VITALS: BP 147/91
== END 2022-07-02 19:59 | disposition home or self-care (01) ==
LOC: ER 17:17
DX: E11.65 Type 2 diabetes mellitus with hyperglycemia (principal); I12.9 Hypertensive chronic kidney disease with stage 1 through stage 4 chronic kidney disease, or unspecified chronic kidney disease; E11.22 Type 2 diabetes mellitus with diabetic chronic kidney disease; N18.9 Chronic kidney disease, unspecified; E78.5 Hyperlipidemia, unspecified; R94.31 Abnormal electrocardiogram [ECG] [EKG]; Z86.73 Personal history of transient ischemic attack (TIA), and cerebral infarction without residual deficits
CPT/HCPCS: 36415; 70450; 71045; 80053; 82948; 83735; 83880; 84484; 85025; 85379; 93005; 99284; J1817; J7030